=== PATIENT | male | born 1950 | race African-American/Black ===

== ENCOUNTER 2016-08-08 01:24 | Inpatient (IN) ==
[2016-08-08] MEDS ORDERED: ENOXAPARIN 100 MG/ML SYRINGE SUBCUT STA (02:03)
[2016-08-08] MEDS ORDERED: MORPHINE 2 MG/1 ML SYRINGE IV STA (02:03)
[2016-08-08 02:11] LABS: Basophils % 0.6 % (0.0-0.8); Eosinophils # 0.2 10*3/uL (0.0-0.87); Eosinophils % 3.9 % (0.00-10.9); Hemoglobin 12.9 GM/DL (14.0-18.0); Immature Granulocytes % 0.2 %; Immature Granulocytes Absolute 0.01 #; Lymphocytes # 1.7 10*3/uL (1.4-4.0); Lymphocytes % 34.1 % (21.2-54.2); Mean Corpuscular HGB Conc 34.9 GM/DL (32-36); Mean Corpuscular Hemoglobin 30 PG (27-34); Mean Corpuscular Volume 86.9 FL (87-102); Monocytes # 0.6 10*3/uL (0.11-0.8); Monocytes % 11.3 % (1.7-12.7); Neutrophils # 2.4 10*3/uL (1.4-7.4); Neutrophils % 49.9 % (38.7-73.9); Platelet Count 199 T/CUMM (130-400); Red Blood Count 4.26 MC/CUMM (3.8-5.5); White Blood Count 4.9 T/CUMM (4-12)
[2016-08-08] MEDS ORDERED: ENOXAPARIN 120 MG/0.8 ML SYRINGE SUBCUT ONE (02:11)
[2016-08-08] MEDS ORDERED: MORPHINE 2 MG/1 ML SYRINGE ONE (02:11)
[2016-08-08 02:17] LABS: INR 1.2; PT Patient Result 13.1 SECS
--- NOTE | 2016-08-08 02:20 | Emergency Department Note ---
Marilyn Hernandes Hilary, am scribing for, and in the presence of, Stanley Lindo MD 02:09. Guicho Hernandes Robert M, MD, personally performed the services described in this documentation, ascribed by Lakeshia Sanders in my presence, and it is both accurate and complete . Arrival - Arrival Chief Complaint: Shortness of Breath Stated Complaint: sob ED Nursing Triage Note: C/O Shortness of breath when laying down or exertion. Onset one week ago. Pt reports compliance with medications and dialysis. Pt reports that they got him down to his dry weight on Friday with no relief in the shortness of breath. Pt states that he was going to try to make it to dialysis today, but he just couldn't make it. Mode of Arrival: Wheelchair Limitations: No Limitations Source: Patient, RN Notes Reviewed - History of Present Illness HPI Narrative: Pt is a 66 y/o black male presenting to the ED with c/o SOB which onset a week ago. Pt confirms SOB when laying down or exertion and abdominal pain but denies chest pain. Pt reports compliance with medications adn dialysis and gets dialysis every Friday, and Friday. No other complaints or problems stated in the ED. Pt has a PMHx of HTN, [place], NIDDM, Renal failure, and dialysis. Onset (ago): week(s) Allergies/Adverse Reactions: Allergies Allergy/AdvReac Type Severity Reaction Status Date / Time No Known Allergies Allergy Verified 12/23/14 12:10 Home Medications: Home Medications Medication Instructions Recorded Confirmed Type Mineral Oil/Petrolatum,White 1 applic RIGHT EYE BEDTIME PRN #1 12/15/14 Rx [Lacri-Lube Oph Oint] tube Aspirin [Ecotrin] 81 mg PO DAILY 12/19/14 08/08/16 History Labetalol HCl 300 mg PO BID 12/19/14 08/08/16 History Simvastatin 40 mg PO BEDTIME 12/19/14 08/08/16 History glipiZIDE XL [Glucotrol Xl] 5 mg PO DAILY W/BREAKFAST 12/19/14 08/08/16 History HYDROcodone/ACETAMIN 10-325 [[place] 1 tablet PO BID 08/08/16 08/08/16 History 10-325] Zolpidem [Ambien] 5 mg PO BEDTIME 08/08/16 08/08/16 History Review of System - Review of System 12 point system: reviewed and no additional remarkable complaints except as stated - Review of System Constitutional: Absent: fever Respiratory: Present: respiratory distress (SOB) Cardiovascular: Present: dyspnea on exertion. Absent: chest pain Gastrointestinal: Present: abdominal pain Medical,Surgical,& Family Hx - Medical History Cardio: History of: Hypertension, [place] Endocrine: History of: Diabetes Mellitus (NIDDM) Renal: History of: Dialysis (FRIDAY, FRIDAY, FRIDAY), Renal Failure - Surgical History Cardiac Surgeries: Sugical HX of: Femoral-Popliteal Bypass Graft Neurologic Surgeries: Surgical HX of: Neurologic Surgery (bells palsey) - Family History Family History: Reports;: Family Diabetes, Family Heart Disease, Family Hypertension - Social History Smoking Status: Never smoker Frequency of Alcohol Use: None Type of Drug Use: None Exam Vital Signs: Vital Signs Temperature 98.2 F 08/08/16 01:27 Pulse Rate 78 08/08/16 01:27 Respiratory Rate 22 08/08/16 01:27 Blood Pressure 207/105 08/08/16 01:27 O2 Sat by Pulse Oximetry 98 08/08/16 01:27 - General General appearance: alert, in no apparent distress - Head Head exam: Present: atraumatic, normocephalic - Eye Eye exam: Present: normal appearance, PERRL, EOMI - ENT ENT exam: Present: mucous membranes moist, TM's normal bilaterally. Absent: mucous membranes dry - Neck Neck exam: Present: full ROM, trachea midline. Absent: tenderness - Chest Chest inspection: Present: symmetric chest wall rise. Absent: tenderness - Respiratory Respiratory exam: Present: rales (bilaterally), rhonchi (bilaterally) - Cardiovascular Cardiovascular exam: Present: regular rate, normal rhythm, normal heart sounds. Absent: murmur, rubs, gallop - Abdominal Exam Abdominal exam: Present: soft, normal bowel sounds. Absent: distention, tenderness - Extremities Exam Extremities exam: Present: full ROM, other (Upper left extremity graft and right forearm graft). Absent: tenderness - Back Exam Back exam: Present: full ROM. Absent: tenderness - Neurological Exam Neurological exam: Present: alert, oriented X3, CN II-XII intact. Absent: motor sensory deficit - Psychiatric Psychiatric exam: Present: normal affect, normal mood - Skin Skin exam: Present: warm, dry, intact, normal color. Absent: rash Results - Labs CBC & BMP: 08/08/16 01:41 08/08/16 01:41 Lab Results: I have reviewed the patients labs Labs: Lab Results WBC 4.9 T/CUMM (4-12) 08/08/16 01:41 RBC 4.26 MC/CUMM (3.8-5.5) 08/08/16 01:41 Hgb 12.9 GM/DL (14.0-18.0) L 08/08/16 01:41 Hct 37.0 VOL% (42.0-52.0) L 08/08/16 01:41 MCV 86.9 FL (87-102) L 08/08/16 01:41 MCH 30 PG (27-34) 08/08/16 01:41 MCHC 34.9 GM/DL (32-36) 08/08/16 01:41 RDW 15.0 % (9.3-17.3) 08/08/16 01:41 Plt Count 199 T/CUMM (130-400) 08/08/16 01:41 MPV 11.0 FL (9.6-12.0) 08/08/16 01:41 Neut % (Auto) 49.9 % (38.7-73.9) 08/08/16 01:41 Lymph % (Auto) 34.1 % (21.2-54.2) 08/08/16 01:41 [place] % (Auto) 11.3 % (1.7-12.7) 08/08/16 01:41 Eos % (Auto) 3.9 % (0.00-10.9) 08/08/16 01:41 Baso % (Auto) 0.6 % (0.0-0.8) 08/08/16 01:41 Neut # (Auto) 2.4 10*3/uL (1.4-7.4) 08/08/16 01:41 Lymph # (Auto) 1.7 10*3/uL (1.4-4.0) 08/08/16 01:41 [place] # (Auto) 0.6 10*3/uL (0.11-0.8) 08/08/16 01:41 Eos # (Auto) 0.2 10*3/uL (0.0-0.87) 08/08/16 01:41 Baso # (Auto) 0.0 10*3/uL (0.0-0.2) 08/08/16 01:41 Immature Gran % 0.2 % 08/08/16 01:41 Nucleated RBC % 0.0 /100WBC 08/08/16 01:41 Immature Gran # 0.01 # 08/08/16 01:41 Nucleated RBCs # 0.00 10*3/uL 08/08/16 01:41 INR 1.2 08/08/16 01:41 PT Patient/Control Mix 13.1 SECS 08/08/16 01:41 Sodium 139 MMOL/L (136-145) 08/08/16 01:41 Potassium 3.2 MMOL/L (3.5-5.1) L 08/08/16 01:41 Chloride 95 MMOL/L (98-107) L 08/08/16 01:41 Carbon Dioxide 32 MMOL/L (21-32) 08/08/16 01:41 Anion Gap 15.2 MMOL/L (5.0-15.0) H 08/08/16 01:41 BUN 34 MG/DL (7-18) H 08/08/16 01:41 Creatinine 11.20 MG/DL (0.70-1.30) H 08/08/16 01:41 GFR Calculation 7 ML/MIN 08/08/16 01:41 BUN/Creatinine Ratio 3.00 RATIO (6.00-20.00) L 08/08/16 01:41 Glucose 101 MG/DL (74-106) 08/08/16 01:41 Calculated Osmolality 284.5 MOS/KG (273-304) 08/08/16 01:41 Calcium 8.3 MG/DL (8.5-10.1) L 08/08/16 01:41 Magnesium 2.0 MG/DL (1.8-2.4) 08/08/16 01:41 Total Bilirubin 0.80 MG/DL (0.2-1.0) 08/08/16 01:41 AST 9 U/L (0-37) 08/08/16 01:41 ALT 9 U/L (16-61) L 08/08/16 01:41 Alkaline Phosphatase 42 U/L (45-117) L 08/08/16 01:41 Troponin I 0.096 NG/ML (0.00-0.045) H 08/08/16 01:41 B-Natriuretic Peptide 1255 PG/ML (2-100) H 08/08/16 01:41 Total Protein 7.2 G/DL (6.4-8.3) 08/08/16 01:41 Albumin 4.0 G/DL (3.4-5.0) 08/08/16 01:41 Globulin 3.2 G/DL (2.3-3.5) 08/08/16 01:41 Albumin/Globulin Ratio 1.2 RATIO (1.1-2.2) 08/08/16 01:41 - Diagnostic Findings Procedure: Chest x-ray: report reviewed by me (Status post CABG. Stable cardiomegaly. Right basilar atelectasis/pleural effusion. Mild CHF not excluded.) Disposition Clinical Impression: Congestive heart failure, Hypertension, Late effects of CVA (cerebrovascular accident), Left leg weakness, ESRD on hemodialysis, Diabetes mellitus Case discussed with: patient, patient's family Disposition: Still a Patient Condition: Stable Time of Disposition: 03:00
[2016-08-08 02:34] LABS: Bilirubin,Total 0.8 MG/DL (0.2-1.0); Calcium 8.3 MG/DL (8.5-10.1); Osmolality,Calculated 284.5 MOS/KG (273-304); Potassium 3.2 MMOL/L (3.5-5.1); Total Protein 7.2 G/DL (6.4-8.3)
[2016-08-08 02:40] LABS: Troponin I Only 0.096 NG/ML (0.00-0.045)
[2016-08-08] MEDS ORDERED: ACETAMINOPHEN 325 MG TABLET PO PRN (03:35)
[2016-08-08] MEDS ORDERED: MORPHINE 2 MG/1 ML SYRINGE IV PRN (03:35)
[2016-08-08] MEDS ORDERED: ZALEPLON 5 MG CAPSULE PO PRN (03:35)
[2016-08-08] MEDS ORDERED: DEXTROSE 50% 25 GM/50 ML VIAL IV PRN (03:40)
[2016-08-08] MEDS ORDERED: GLUCAGON 1 MG VIAL IM PRN (03:40)
[2016-08-08] MEDS ORDERED: MINERAL OIL/PETROLATUM OPH OINT 3.5 GM TUBE RIGHT EYE PRN (03:42)
--- NOTE | 2016-08-08 03:59 | Hospitalist History & Physical ---
Assessment and Plan (1) Congestive heart failure Status: Acute Assessment and plan: 66 year old male. Patient was markedly short of breath on admission. After morphine and O2 per NC, he was resting comfortably. We will forego diuresis as the patient no longer makes urine. We have consulted cardiology. Current Visit: Yes (2) ESRD on hemodialysis Status: Chronic Assessment and plan: Patient dialyzes on Friday, , Friday. We have consulted nephrology and will plan to dialyze today as scheduled. Current Visit: Yes (3) Diabetes mellitus Status: Acute Assessment and plan: Serum glucose 101. Appears to be well controlled on home meds. Continue POC. Current Visit: Yes Qualifiers: Diabetes mellitus type: type 2 Diabetes mellitus complication detail: with chronic kidney disease Qualified Code(s): E11.22 - Type 2 diabetes mellitus with diabetic chronic kidney disease (4) Hypertension Status: Acute Assessment and plan: Patient states that his BP is typically well controlled with Lobetalol. Will continue home meds and adjust hospital medications accordingly as needed. Current Visit: Yes Qualifiers: Hypertension type: essential hypertension Qualified Code(s): I10 - Essential (primary) hypertension History of Present Illness Chief complaint: SOB History of present illness: Mr. Denney is a 66 year old male with a past medical history significant for hypertension, congestive heart failure, diabetes mellitus, CABG in 2009, and ESRD on hemodialysis who presents to the ED today with complaints of progressive shortness of breath x 1 week. The patient has been on hemodialysis for nearly 18 years now and routinely sees Dr. Rian Vela and [facility] nephrology for his renal and primary medical management. He reports that he has been feeling progressively short of breath for approximately one week now. He dialyzes on Friday, and Friday. He tells me that on Friday, nearly 4L were pulled off of him in an effort to improve his breathing. Unfortunately, that provided little relief. On exam, the patient is resting comfortably on 2L O2 per NC in bed and able to have normal conversation without becoming short of breath. He only complains of the SOB and some generalized abdominal pain. He denies headache, chest pain, pain on inspiration, syncope, lower extremity edema. Preliminary lab work reveals hemoglobin 12.9 hematocrit 37.0 potassium 3.2 chloride 95 CO2 32 BUN 34 creatinine 11.2 calcium 8.3 troponin 0.096 BNP 1255. The patient will be admitted to the hospital medicine service for further evaluation and treatment. We will consult nephrology for hemodialysis. He is a full code. Home Medications Medication Instructions Recorded Confirmed Type Mineral Oil/Petrolatum,White 1 applic RIGHT EYE BEDTIME PRN #1 12/15/14 Rx [Lacri-Lube Oph Oint] tube Aspirin [Ecotrin] 81 mg PO DAILY 12/19/14 08/08/16 History Labetalol HCl 300 mg PO BID 12/19/14 08/08/16 History Simvastatin 40 mg PO BEDTIME 12/19/14 08/08/16 History glipiZIDE XL [Glucotrol Xl] 5 mg PO DAILY W/BREAKFAST 12/19/14 08/08/16 History HYDROcodone/ACETAMIN 10-325 [[place] 1 tablet PO BID 08/08/16 08/08/16 History 10-325] Zolpidem [Ambien] 5 mg PO BEDTIME 08/08/16 08/08/16 History Allergies Allergy/AdvReac Type Severity Reaction Status Date / Time No Known Allergies Allergy Verified 12/23/14 12:10 Medical,Surgical,& Family Hx - Medical History Cardio: History of: Hypertension, [place] Endocrine: History of: Diabetes Mellitus (NIDDM) Renal: History of: Dialysis (FRIDAY, FRIDAY, FRIDAY), Renal Failure - Surgical History Cardiac Surgeries: Sugical HX of: Femoral-Popliteal Bypass Graft Neurologic Surgeries: Surgical HX of: Neurologic Surgery (bells palsey) - Family History Family History: Reports;: Family Diabetes, Family Heart Disease, Family Hypertension - Social History Smoking Status: Never smoker Frequency of Alcohol Use: None Type of Drug Use: None Marital Status: Lives With:: Spouse Functional capacity: independent ambulation - Constitutional Constitutional: Absent: frequent falls, headache(s), weakness - EENT Eyes: Absent: blurry vision, loss of vision Ears: Absent: decreased hearing - Cardiovascular Cardiovascular: Present: dyspnea on exertion. Absent: chest pain at rest, chest pain with activity - Respiratory Respiratory: Present: dyspnea, dyspnea on exertion. Absent: cough, hemoptysis - Gastrointestinal Gastrointestinal: Absent: abdominal pain, constipation, diarrhea - Genitourinary Genitourinary: Absent: difficulty urinating, dysuria - Musculoskeletal Musculoskeletal: Absent: back pain - Neurological Neurological: Absent: abnormal gait, abnormal speech - Psychiatric Psychiatric: Absent: anxiety, confusion - Endocrine Endocrine: Present: cold intolerance, heat intolerance - Hematologic/Lymphatic Hematologic/Lymphatic: Present: easy bleeding. Absent: easy bruising Exam - Constitutional Vitals: Period Temp Pulse Resp BP Sys/Carreon Pulse Ox Last 24 Hr 98.2 F-98.2 F 78-78 18-22 207-207/105-105 98 Exam: General appearance: overweight, no acute distress - Head Head exam: Present: normocephalic, atraumatic - Eye Eye exam: Present: EOMI. Absent: conjunctival injection, nystagmus Pupils: Present: FERCHO, normal accommodation - ENT ENT exam: Present: normal exam, normal external ear exam - Neck Neck exam: Present: normal inspection. Absent: lymphadenopathy, tenderness, thyromegaly - Respiratory Respiratory exam: Present: clear to auscultation bilaterally. Absent: rales, rhonchi, wheezes - Cardiovascular Cardiovascular exam: Present: regular rate and rhythm. Absent: carotid bruit, gallop, rubs - GI/Abdominal GI/Abdominal exam: Present: normal bowel sounds, soft, nontender Absent: ascites, distended, mass - Extremities Exam Extremities exam: Present: normal inspection, normal capillary refill. Absent: edema - Back Exam Back exam: Absent: CVA tenderness (L), CVA tenderness (R) - Neurological Exam Neurological exam: Present: alert, oriented X3 - Psychiatric Psychiatric exam: Present: normal affect, normal mood - Skin Skin exam: Present: normal color, warm, dry Results - Labs CBC & BMP: 08/08/16 01:41 08/08/16 01:41 Lab Results: I have reviewed the past 24 hour labs
[2016-08-08] MEDS ORDERED: hydrALAZINE 20 MG/1 ML VIAL IV PRN (05:05)
[2016-08-08 06:37] LABS: Basophils % 0.5 % (0.0-0.8); Eosinophils # 0.2 10*3/uL (0.0-0.87); Hematocrit 35.6 VOL% (42.0-52.0); Hemoglobin 11.8 GM/DL (14.0-18.0); Immature Granulocytes % 0.2 %; Immature Granulocytes Absolute 0.01 #; Lymphocytes # 1.4 10*3/uL (1.4-4.0); Lymphocytes % 32.6 % (21.2-54.2); Mean Corpuscular HGB Conc 33.1 GM/DL (32-36); Mean Corpuscular Hemoglobin 29 PG (27-34); Mean Corpuscular Volume 88.1 FL (87-102); Mean Platelet Volume 10.2 FL (9.6-12.0); Monocytes # 0.5 10*3/uL (0.11-0.8); Monocytes % 10.7 % (1.7-12.7); Neutrophils # 2.2 10*3/uL (1.4-7.4); Platelet Count 189 T/CUMM (130-400); Red Blood Count 4.04 MC/CUMM (3.8-5.5); Red Cell Distribution Width 14.9 % (9.3-17.3); White Blood Count 4.3 T/CUMM (4-12)
--- NOTE | 2016-08-08 06:53 | XRay Report ---
Exam: XR chest 1V portable Date: 08/08/2016 2:03 AM Indication: Shortness of breath Comparison: 12/19/2014 Technical: AP portable Findings: Cardiomegaly present with previous sternotomy. Minimal atelectatic change in the right base. Mild pleural thickening and/or tiny effusion present along the right chest. No pneumothorax. Impression: 1. Cardiomegaly with the previous sternotomy 2. Low volume right effusion and atelectatic change with basal atelectasis in the left base also noted. PROCEDURE INTERPRETED AT [facility] DEPARTMENT OF RADIOLOGY Final Report Signed by: Dr. Dustin Myers
[2016-08-08 07:12] LABS: Calcium 8.3 MG/DL (8.5-10.1); Osmolality,Calculated 286.4 MOS/KG (273-304); Potassium 3.1 MMOL/L (3.5-5.1)
[2016-08-08] MEDS: INSULIN LISPRO 100 UNIT/ML SUBCUT SCH ×4 (08:06→21:36)
--- NOTE | 2016-08-08 08:54 | Nephrology Consult Note ---
History of Present Illness Chief complaint: SOB and ESRD History of present illness: Mr. Denney is a 66 year old male who presents with shortness of breath. He dialyzes on Friday and the [facility]. He has been complaining of shortness of breath which became worse last night. Chest x- ray demonstrates changes compatible with volume overload. His chest is very clear to auscultation but he does have 2+ peripheral edema below the knees. He says he has been eating well. Past medical history significant for coronary artery bypass grafting 7 years ago. On physical exam as mentioned the chest is clear he does have edema he is in no distress he is using supplemental oxygen with an O2 saturation of 97% and a heart rate of 80. Impression volume overload #2 end-stage renal disease Plan will dialyze today and remove as much fluid as tolerated and see if that helps his shortness of breath. Nothing in his history suggests angina. His hematocrit is 35 Home Medications Medication Instructions Recorded Confirmed Type Aspirin [Ecotrin] 81 mg PO DAILY 12/19/14 08/08/16 History Labetalol HCl 300 mg PO BID 12/19/14 08/08/16 History Simvastatin 40 mg PO BEDTIME 12/19/14 08/08/16 History glipiZIDE XL [Glucotrol Xl] 5 mg PO DAILY W/BREAKFAST 12/19/14 08/08/16 History Clopidogrel [Plavix] 75 mg PO DAILY 08/08/16 08/08/16 History HYDROcodone/ACETAMIN 10-325 [[place] 1 tablet PO BID 08/08/16 08/08/16 History 10-325] Zolpidem [Ambien] 5 mg PO BEDTIME 08/08/16 08/08/16 History Allergies Allergy/AdvReac Type Severity Reaction Status Date / Time No Known Allergies Allergy Verified 12/23/14 12:10 Medical,Surgical,& Family Hx - Medical History Cardio: History of: Hypertension, [place] Endocrine: History of: Diabetes Mellitus (NIDDM) Renal: History of: Dialysis (FRIDAY, FRIDAY, FRIDAY), Renal Failure Musculoskeletal: History of: Back/Neck Problems ("back problems") - Surgical History Cardiac Surgeries: Sugical HX of: Femoral-Popliteal Bypass Graft Neurologic Surgeries: Surgical HX of: Neurologic Surgery (bells palsey) - Family History Family History: Reports;: Family Diabetes, Family Heart Disease, Family Hypertension - Social History Smoking Status: Never smoker Frequency of Alcohol Use: None Type of Drug Use: None Review of Systems 12 point system: reviewed and no additional remarkable complaints except as stated Exam - Vital Signs Vital signs: Period Temp Pulse Resp BP Sys/Carreon Pulse Ox Last 24 Hr 97.8 F 71-72 18-20 183-186/96-116 95-98 - General Appearance General appearance: well-developed, well-nourished, appears started age EENT: ATNC Neck: no JVD, no thyromegaly, no carotid bruit, supple Respiratory: no kyphosis, no scoliosis Cardiology: no murmurs, no rub, no gallops, no edema, regular rate, regular rhythm, normal S1, normal S2 Gastrointestinal: normoactive bowel sounds Integumentary: no rash, warm and dry Neurologic: no focal deficit, no asterixis, alert and oriented x3, reflexes 2+ and symmetric, gait normal, strength 5/5 Musculoskeletal: no deformities, no erythema, no cyanosis, no clubbing Psychiatric: mood/affect appropriate, cooperative Results - Labs CBC & BMP: 08/08/16 06:22 08/08/16 06:22 Assessment and Plan - Time spent with patient Time spent with patient: Greater than 30 minutes (1) Dyspnea Status: Acute Assessment and plan: Volume overload, will dialyze Current Visit: Yes (2) ESRD on hemodialysis Status: Chronic Current Visit: Yes (3) History of coronary artery bypass graft Status: Chronic Current Visit: Yes Specialty Discharge - Follow Up or Referrals - Speciality Discharge Instructions Nephrology Instructions: Dialyzed today and remove volume as tolerated.
[2016-08-08] MEDS ORDERED: POTASSIUM CHLORIDE 20 MEQ TABLET PO ONE (09:02)
--- NOTE | 2016-08-08 09:06 | EKG Report ---
Stationary ECG Study [facility] ER Test Date: 08/08/2016 1:32:13 AM Pat Name: ABIGAIL MATOS Department: Room: 234 Gender: M Residential Program Director: : 1950 Requested by: Carolann Jules Order Number: [id number] Reading MD: GI TALLEY Intervals [place] Rate: 72 P: 999 NC: 0 QRS: 38 QRSD: 90 T: 125 QT: 335 QTc: 360 Interpretive Statements ATRIAL FIBRILLATION WITH ABERRANT CONDUCTION OR VENTRICULAR PREMATURE COMPLEX NONSPECIFIC T-WAVE ABNORMALITY Electronically Signed On 08-08-16 11:28:08 CDT by GI TALLEY [email or web address]
[2016-08-08] MEDS: ASPIRIN EC 81 MG TABLET PO SCH (09:45)
[2016-08-08] MEDS: LABETALOL 100 MG TABLET PO SCH ×2 (09:46→21:35)
[2016-08-08] MEDS: PANTOPRAZOLE 40 MG TABLET PO SCH (09:46)
--- NOTE | 2016-08-08 09:53 | EKG Report ---
Stationary ECG Study [facility] Test Date: 08/08/2016 9:52:56 AM Pat Name: ABIGAIL MATOS Department: Room: 234 Gender: M Claims Representative: : 1950 Requested by: Stanley Lindo Order Number: [id number] Reading MD: GI TALLEY Intervals [place] Rate: 74 P: 21 WV: 184 QRS: 71 QRSD: 94 T: 137 QT: 395 QTc: 422 Interpretive Statements SINUS RHYTHM WITH OCCASIONAL VENTRICULAR PREMATURE COMPLEXES WITH OCCASIONAL SUPRAVENTRICULAR PREMATURE COMPLEXES NONSPECIFIC T-WAVE ABNORMALITY Electronically Signed On 08-08-16 11:45:21 CDT by GI TALLEY [email or web address]
[2016-08-08 10:19] LABS: Troponin I Only 0.094 NG/ML (0.00-0.045)
[2016-08-08 10:21] LABS: Calcium 8.1 MG/DL (8.5-10.1); Osmolality,Calculated 286.5 MOS/KG (273-304); Potassium 3.1 MMOL/L (3.5-5.1)
--- NOTE | 2016-08-08 14:43 | Dialysis Note ---
Dialysis Note - Dialysis Note Mr. Gonzales seen during his hemodialysis. We are removing 4 kg of volume today and will repeat a chest x-ray in the morning. He is tolerating this fluid removal well with no drop in blood pressure and no problem thus far.
[2016-08-08] MEDS: hydrALAZINE 25 MG TABLET PO SCH ×2 (16:58→21:36)
--- NOTE | 2016-08-08 17:23 | ECHO Report ---
Sheldon Denney Exam Date: 08/08/2016 09:13 Referring Physician: Technologist: Rebekah Barber Age: 66 Ht (in): 69 Wt (lb): 260 Gender: M Exam Location: [facility] Echo Indications: Altered mental status, CHF, Lt. Leg weakness, Rt. sided bells palsy, ESRD, diabetes, HTN, CVA BP: 183 / 125 HR: 71 Rhythm: Sinus Technical Quality: Fair IMPRESSIONS Distal anteroapical hypokinesis. EF 45 %. Grade II/IV diastolic dysfunction, moderately elevated filling pressures. Mild concentric left ventricular hypertrophy. Mildly increased right ventricular size. The right atrium is mildly enlarged. The left atrium is mildly enlarged. Mildly thickened mitral valve. Mild mitral valve regurgitation. Aortic valve sclerosis. Trace aortic valve regurgitation. Toxf-im-ltgnicyb tricuspid valve regurgitation. PAP40 mmHg. Pulmonic valve not well visualized. No pericardial effusion. Normal size aortic root and proximal ascending aorta. No LV or LA clot seen. MEASUREMENTS (Male / Female) Normal Values 2D ECHO LV Diastolic Diameter PLAX 5.7 cm 4.2 - 5.9 / 3.9 - 5.3 cm LV Systolic Diameter PLAX 4.0 cm LV Fractional Shortening PLAX 29.9 % IVS Diastolic Thickness 1.6 cm 0.6 - 1.0 / 0.6 - 0.9 cm LVPW Diastolic Thickness 1.4 cm 0.6 - 1.0 / 0.6 - 0.9 cm Aortic Root Diameter 2.3 cm LA Systolic Diameter LX 4.3 cm 3.0 - 4.0 / 2.7 - 3.8 cm DOPPLER TR Peak Velocity 196.0 cm/s TR Peak Gradient 15.4 mmHg FINDINGS Left Ventricle Distal anteroapical hypokinesis.EF 45 %. Grade II/IV diastolic dysfunction, moderately elevated filling pressures. Mild concentric left ventricular hypertrophy. Right Ventricle Mildly increased right ventricular size. Right Atrium The right atrium is mildly enlarged. Left Atrium The left atrium is mildly enlarged. Mitral Valve Mildly thickened mitral valve. Mild mitral valve regurgitation. Aortic Valve Aortic valve sclerosis. Trace aortic valve regurgitation. Tricuspid Valve Morphologically normal tricuspid valve. Lsfy-hi-zfpnnceo tricuspid valve regurgitation. PAP40 mmHg. Pulmonic Valve Pulmonic valve not well visualized. Pericardium No pericardial effusion. Aorta Normal size aortic root and proximal ascending aorta. Anuj Plavac (Electronically Signed) Final Date: 08 Aug 2016 17:22
--- NOTE | 2016-08-08 17:36 | Cardiology Consult Note ---
Azar Hernandes April RN, am scribing for, and in the presence of, Eliecer Jones MD 17:35. Assessment and Plan - Time spent with patient Time spent with patient: Greater than 30 minutes (Due to assessment, planning, documentation, medication review) (1) SOB (shortness of breath) Status: Acute Current Visit: Yes (2) CAD (coronary artery disease) Status: Chronic Current Visit: Yes Qualifiers: Coronary Disease-Associated Artery/Lesion type: bypass graft [place] vs. transplanted heart: [place] heart Associated angina: without angina Qualified Code(s): I25.810 - Atherosclerosis of coronary artery bypass graft(s) without angina pectoris (3) History of coronary artery bypass graft Status: Chronic Current Visit: Yes (4) ESRD on hemodialysis Status: Chronic Current Visit: Yes (5) Atrial fibrillation Status: Acute Current Visit: Yes History of Present Illness - Data of Consult Patient: known to practice within the last 3 years Consult date: 08/08/16 Requesting Physician: Hemant Fischer - Consult Narrative Reason for consult: Shortness of breath History of present illness: Youtuber: Dr. Jones Mr. Denney is a 66 year old male who is routinely followed by Dr. Jones with a history of CAD, NIDDM, end-stage renal disease on dialysis, hypertension, dyslipidemia, and Jimenez's palsy. He underwent CABG on 07/31/[address] Ashley with a HARDY to LAD, SVG to circumflex, and SVG to PDA. Stress test done at Dr. Jones's office in June 2014 that showed abnormal myocardial perfusion suggesting inferoapical scar and abnormal segmental wall motion suggesting diffuse hypokinesis. Echo done in August 2015 with ejection fraction of 45%. Other surgical history includes thyroid surgery and surgery to left arm for dialysis access. Family history is positive for father with diabetes, heart disease, and hypertension. He does not smoke, reportedly quit smoking 30 years ago. He lives at home with his and uses a cane to assist with ambulation. Mr. Denney reports he was in his usual state of health until about a week ago. He tells me he normally has some dyspnea on exertion, but this got worse about a week ago. He also began to get short of breath at rest and reports orthopnea. Over the last week this has progressively gotten worse. He dialyzes on Tuesdays and Saturdays and have dialysis on Friday would help, but he reports that it did not. He presented to the emergency department earlier this morning for further evaluation. He reports his breathing improved after he received morphine and oxygen via nasal cannula in the emergency department. Currently Mr. Denney is seen sitting up on side of bed eating breakfast in no acute distress. He reports he is still slightly short of breath, but much improved from on admission. He is able to carry on a conversation. Oxygen in use via nasal cannula at 2 L. He denies having had any swelling with this shortness of breath, but I do note that he has trace edema to his bilateral lower extremities. Chest x-ray shows cardiomegaly and atelectasis. EKG done in emergency department shows atrial fibrillation with heart rate of 72. He tells me he has had no knowledge of any rhythm problems. Rhythm strip done later this morning appears to be sinus rhythm. He is currently not on a monitor , but he does sound irregular on auscultation. We will recheck an EKG this morning. Blood pressures been elevated since admission, most current is 183/ 96. He takes labetalol 300 mg twice daily at home, this has been started. We will add hydralazine 25 mg p.o. 3 times daily. O2 sat 95% on 2 L of O2. His potassium is low at 3.1, magnesium is 2.0. We will give K-Dur 20 meq 1 dose now and recheck labs after dialysis today. BUN and creatinine 36 and 11.90, he is scheduled to dialyze today. Troponin 0.096, we will cycle cardiac biomarkers. BNP is 1205. He does not make any urine so diuretics have not been given. Echo is pending. Patient admitted with CHF exacerbation. He has known coronary disease and repeat echo is pendin We will continue his current medications. CC: Reddy Leger MD - Home Medications and Allergies Home Medications: Home Medications Medication Instructions Recorded Confirmed Type Aspirin [Ecotrin] 81 mg PO DAILY 12/19/14 08/08/16 History Labetalol HCl 300 mg PO BID 12/19/14 08/08/16 History Simvastatin 40 mg PO BEDTIME 12/19/14 08/08/16 History glipiZIDE XL [Glucotrol Xl] 5 mg PO DAILY W/BREAKFAST 12/19/14 08/08/16 History Clopidogrel [Plavix] 75 mg PO DAILY 08/08/16 08/08/16 History HYDROcodone/ACETAMIN 10-325 [[place] 1 tablet PO BID 08/08/16 08/08/16 History 10-325] Zolpidem [Ambien] 5 mg PO BEDTIME 08/08/16 08/08/16 History Allergies/Adverse Reactions: Allergies Allergy/AdvReac Type Severity Reaction Status Date / Time No Known Allergies Allergy Verified 12/23/14 12:10 - Constitutional Constitutional: Present: as per HPI - EENT Eyes: Present: requires corrective lense. Absent: blurry vision Ears: Absent: decreased hearing, ear pain, tinnitus Nose, mouth and throat: Absent: dysphagia, epistaxis, headache(s), hoarseness, neck pain, sore throat - Cardiovascular Cardiovascular: Present: dyspnea, dyspnea on exertion, edema, orthopnea. Absent : chest pain at rest, chest pain with activity, diaphoresis, radiating jaw, neck or arm pain, lightheadedness, palpitations - Respiratory Respiratory: Present: cough (Dry), dyspnea, dyspnea on exertion. Absent: hemoptysis, wheezing - Gastrointestinal Gastrointestinal: Present: constipation. Absent: abdominal pain, diarrhea, hematemesis, hematochezia, melena, nausea, vomiting - Genitourinary Genitourinary: Present: other (End-stage renal disease on dialysis) - Musculoskeletal Musculoskeletal: Present: back pain. Absent: limited range of motion, muscle weakness - Neurological Neurological: Present: abnormal gait. Absent: abnormal speech, confusion, dizziness, frequent falls, headache(s), syncope - Psychiatric Psychiatric: Absent: anxiety, depression - Endocrine Endocrine: Present: fatigue - Hematologic/Lymphatic Hematologic/Lymphatic: Absent: easy bleeding, easy bruising Medical,Surgical,& Family Hx - Medical History Cardio: History of: CAD, Hypertension Endocrine: History of: Diabetes Mellitus (NIDDM) Renal: History of: Dialysis (FRIDAY, FRIDAY, FRIDAY), Renal Failure Musculoskeletal: History of: Back/Neck Problems ("back problems") - Surgical History Cardiac Surgeries: Sugical HX of: Cardiac Surgery (CABG 2009) Additional Surgical History: Dialysis access - Family History Family History: Reports;: Family Diabetes (Father), Family Heart Disease (Father ), Family Hypertension (Father) - Social History Smoking Status: Former smoker (Quit 30 years ago) Frequency of Alcohol Use: None Type of Drug Use: None Marital Status: Lives With:: Spouse Functional capacity: uses cane/walker Physical Examination Vital Signs Temp Pulse Resp BP Pulse Ox 98.2 F 78 22 207/105 98 08/08/16 01:27 08/08/16 01:27 08/08/16 01:27 08/08/16 01:27 08/08/16 01:27 General: Present: Appears Well, No Apparent Distress HEENT: Present: PERRL, Mucus Membranes Moist Neck: Present: Supple Neck, Midline Trachea, No Bruit Cardiac: Present: Irregularly Regular, No Murmur Lungs: Present: Normal Breath Sounds, Oxygen (Via nasal cannula), No Wheeze, Rales, Rhonchi Neuro: Absent: Resting Tremor, Essential Tremor Abdomen: Present: Soft, Active Bowel Sounds, Non-Tender. Absent: Distended Skin: Present: Clear Musculoskeletal: Present: Normal Range of Motion Extremities: Present: Normal Upper Extr. Pulses, Normal Lower Extr. Pulses, Edema (Trace edema to bilateral lower extremities), Other (Dialysis access left arm) Result/EKG - Labs CBC & BMP: 08/08/16 06:22 08/08/16 09:23 Lab Results: I have reviewed the past 24 hour labs Labs: Laboratory Results - last 24 hr 08/08/16 08/08/16 08/08/16 06:22 06:22 06:22 WBC 4.3 RBC 4.04 Hgb 11.8 L Hct 35.6 L MCV 88.1 MCH 29 MCHC 33.1 RDW 14.9 Plt Count 189 MPV 10.2 Neut % (Auto) 52.0 Lymph % (Auto) 32.6 [place] % (Auto) 10.7 Eos % (Auto) 4.0 Baso % (Auto) 0.5 Neut # (Auto) 2.2 Lymph # (Auto) 1.4 [place] # (Auto) 0.5 Eos # (Auto) 0.2 Baso # (Auto) 0.0 Immature Gran % 0.2 Nucleated RBC % 0.0 Immature Gran # 0.01 Nucleated RBCs # 0.00 Sodium 140 Potassium 3.1 L Chloride 96 L Carbon Dioxide 31 Anion Gap 16.1 H BUN 36 H Creatinine 11.90 H GFR Calculation 6 BUN/Creatinine Ratio 3.00 L Glucose 90 POC Glucose Calculated Osmolality 286.4 Calcium 8.3 L Magnesium 2.0 B-Natriuretic Peptide 1205 H 08/08/16 07:17 WBC RBC Hgb Hct MCV MCH MCHC RDW Plt Count MPV Neut % (Auto) Lymph % (Auto) [place] % (Auto) Eos % (Auto) Baso % (Auto) Neut # (Auto) Lymph # (Auto) [place] # (Auto) Eos # (Auto) Baso # (Auto) Immature Gran % Nucleated RBC % Immature Gran # Nucleated RBCs # Sodium Potassium Chloride Carbon Dioxide Anion Gap BUN Creatinine GFR Calculation BUN/Creatinine Ratio Glucose POC Glucose 80 Calculated Osmolality Calcium Magnesium B-Natriuretic Peptide - Diagnostic Findings Procedure: Chest x-ray: report reviewed by me - EKG EKG results: interpreted by me EKG shows: atrial fibrillation Robert Hernandes Wesley, MD, personally performed the services described in this documentation, ascribed by Amanda Askew RN in my presence, and it is both accurate and complete [id number] .
[2016-08-08] MEDS ORDERED: ZOLPIDEM 5 MG TABLET PO SCH (21:00)
[2016-08-08] MEDS ORDERED: SIMVASTATIN 40 MG TABLET PO SCH (21:00)
[2016-08-09 04:49] LABS: Basophils % 0.7 % (0.0-0.8); Eosinophils # 0.2 10*3/uL (0.0-0.87); Eosinophils % 3.9 % (0.00-10.9); Hematocrit 33.4 VOL% (42.0-52.0); Hemoglobin 11.2 GM/DL (14.0-18.0); Immature Granulocytes % 0.2 %; Immature Granulocytes Absolute 0.01 #; Lymphocytes # 1.2 10*3/uL (1.4-4.0); Lymphocytes % 29.5 % (21.2-54.2); Mean Corpuscular HGB Conc 33.5 GM/DL (32-36); Mean Corpuscular Hemoglobin 29 PG (27-34); Mean Platelet Volume 11.1 FL (9.6-12.0); Monocytes # 0.5 10*3/uL (0.11-0.8); Monocytes % 12.9 % (1.7-12.7); Neutrophils # 2.2 10*3/uL (1.4-7.4); Neutrophils % 52.8 % (38.7-73.9); Platelet Count 196 T/CUMM (130-400); Red Blood Count 3.84 MC/CUMM (3.8-5.5); Red Cell Distribution Width 14.9 % (9.3-17.3); White Blood Count 4.1 T/CUMM (4-12)
[2016-08-09 05:33] LABS: Osmolality,Calculated 279.7 MOS/KG (273-304); Potassium 3.3 MMOL/L (3.5-5.1)
--- NOTE | 2016-08-09 07:10 | XRay Report ---
XR chest 2V Date: 08/09/2016 4:00 AM History: Shortness of breath Comparison: 08/08/2016 Technique: PA and lateral chest Findings: The heart is smaller in size with prior median sternotomy. Reduced parenchymal findings with smaller pleural effusions. Stable mediastinum and osseous structures. Impression: Improved pulmonary edema with residual atelectasis/infiltration especially in the right mid to lower lung zone. Smaller pleural effusions. Prior median sternotomy. PROCEDURE INTERPRETED AT [facility] DEPARTMENT OF RADIOLOGY Final Report Signed by: Dr. Dorinda Hutchinson
--- NOTE | 2016-08-09 07:52 | Physician Query Form ---
CLICK EDIT DOCUMENT TO SELECT QUERY ANSWER --> OK --> SIGN Fadumo Lindo RN, CCDS Certified Clinical Clerical Clerk W) [phone] (f) [phone] [email or web address]: Make your selection(s) from the choices in EACH section by typing an "x" and enter comments in the comment section. Please use your independent medical judgment in providing your response. This request does not imply that any particular answer is desired or expected. CLINICAL INDICATORS: (Providers should not edit this section) The medical record indicates that the patient was admitted with congestive heart failure, BNP 1255#, "Echo done in August 2015 with ejection fraction of 45% "; the patient was admitted and had dialysis done. Please provide further specificity regarding CHF. ACUITY: ( ) Acute ( ) Chronic ( x) Acute on Chronic ( ) Clinicallly unable to determine TYPE: ( x) Systolic (HFrEF - heart failure with reduced systolic function/EF) ( ) Diastolic (HFpEF - heart failure with preserved systolic function/EF) ( ) Combined Systolic/Diastolic ( ) Other, please specify: ( ) Clinically unable to determine ( ) The patient does NOT have CHF COMMENTS: PLEASE ALSO DOCUMENT RESPONSE IN PROGRESS NOTES AND/OR DISCHARGE SUMMARY Use of terms such as suspected, likely, or probable (associated with a specific diagnosis that is being evaluated, monitored, or treated as if it exists) are acceptable and can be restated in the discharge summary if not ruled out. MTDD
[2016-08-09] MEDS: INSULIN LISPRO 100 UNIT/ML SUBCUT SCH ×2 (08:24→12:16)
[2016-08-09] MEDS: ASPIRIN EC 81 MG TABLET PO SCH (08:26)
[2016-08-09] MEDS: LABETALOL 100 MG TABLET PO SCH (08:26)
[2016-08-09] MEDS: hydrALAZINE 25 MG TABLET PO SCH (08:26)
[2016-08-09] MEDS: PANTOPRAZOLE 40 MG TABLET PO SCH (08:26)
--- NOTE | 2016-08-09 09:05 | Nephrology Progress Note ---
Nephrology - PN: Subj Interval history: Mr. Denney is seen in follow-up of his end-stage renal disease and presentation with shortness of breath. He dialyzed yesterday and fluid was removed. He says he is breathing better but is still short of breath with exertion and did have some orthopnea last night. Chest x-ray this morning demonstrates improved pulmonary edema but still evidence of excess volume is present. We are going to ultrafilter him today for at least 3 kg, more if possible. Following that I think he could be discharged if he is breathing better and resume his outpatient dialysis. If the fluid removal remedies his shortness of breath then we will need to modify his dry weight at the dialysis clinic. Exam (PN)-Nephrology - Vital Signs Vital signs: Period Temp Pulse Resp BP Sys/Carreon Pulse Ox Last 24 Hr 97.3 F-98.1 F 61-77 20-24 119-196/65-97 96-98 - Lab 08/09/16 03:57 08/09/16 03:57 Most recent lab results Calcium 8.0 MG/DL (8.5-10.1) L 08/09/16 03:57 Magnesium 2.0 MG/DL (1.8-2.4) 08/09/16 03:57 Assessment and Plan (1) Dyspnea Status: Acute Assessment and plan: Volume overload, will dialyze Current Visit: Yes (2) ESRD on hemodialysis Status: Chronic Current Visit: Yes (3) History of coronary artery bypass graft Status: Chronic Current Visit: Yes
--- NOTE | 2016-08-09 09:25 | Dialysis Note ---
Dialysis Note - Dialysis Note Mr. Denney is seen during his hemodialysis. We are ultrafiltering aggressively today trying to remove another 3 kg. His weight at present time is 108 kg so it appears his best weight is going to be about 105 kg and will change that dry weight at the kidney unit. He is anxious to go home and I think he will be able to go home this afternoon following this ultrafiltration session. He will dialyze again tomorrow as an outpatient.
[2016-08-09 12:55] VITALS: BP 131/70
--- NOTE | 2016-08-09 13:51 | Discharge Summary ---
Hospital Course - Hospital Course Hospital Course: Mr. Denney is a 66 year old male with a past medical history significant for hypertension, congestive heart failure, diabetes mellitus, CABG in 2009, and ESRD on hemodialysis who presented to the ED with complaints of progressive shortness of breath x 1 week. The patient has been on hemodialysis for nearly 18 years now and routinely sees Dr. Rian Vela and [facility] [place] for his renal and primary medical management. He reported that he had been feeling progressively short of breath for approximately one week now. He dialyzes on Friday, and Friday. He tells me that on Friday, nearly 4L were pulled off of him in an effort to improve his breathing. Unfortunately, that provided little relief. On exam, the patient is resting comfortably on 2L O2 per NC in bed and able to have normal conversation without becoming short of breath. He only complains of the SOB and some generalized abdominal pain. He denies headache, chest pain, pain on inspiration, syncope, lower extremity edema. Preliminary lab work reveals hemoglobin 12.9 hematocrit 37.0 potassium 3.2 chloride 95 CO2 32 BUN 34 creatinine 11.2 calcium 8.3 troponin 0.096 BNP 1255. The patient will be admitted to the hospital medicine service for further evaluation and treatment. Nephrology was consulted. He underwent HD on the day of admission for fluid removal. He no longer produces any urine. 4kg ov volume were removed. He underwent HD this morning as well with 3kg removed. He is now breathing comfortably and ambulating in the halls. He has reached maximum benefit of inpatient stay and will be discharged home. - Time spent with patient Time with patient DS: Less than 30 minutes Diagnosis - Discharge Diagnosis (1) ESRD on hemodialysis Status: Chronic (2) Diabetes mellitus Status: Chronic (3) Hypertension Status: Chronic (4) SOB (shortness of breath) Status: Resolved Discharge Plan - Discharge Data Disposition: Disch To Home/Self Care Condition at Discharge: Stable Discharge Diet: low salt diet Activity: resume usual activities as tolerated Hygiene: no restrictions Weight Bearing at Discharge: weight bear as tolerated Driving: no restrictions Contact your physician if you experience:: fever over 101, Shortness of breath - Discharge Medications New hydrALAZINE TAB [Apresoline Tab] 25 mg PO TID #90 tablet Continue Simvastatin 40 mg PO BEDTIME Labetalol HCl 300 mg PO BID Aspirin [Ecotrin] 81 mg PO DAILY glipiZIDE XL [Glucotrol Xl] 5 mg PO DAILY W/BREAKFAST Clopidogrel [Plavix] 75 mg PO DAILY Zolpidem [Ambien] 5 mg PO BEDTIME HYDROcodone/ACETAMIN 10-325 [[place] 10-325] 1 tablet PO BID - Follow Up or Referral - Forms/Instructions Exam - Constitutional Vitals: Period Temp Pulse Resp BP Sys/Carreon Pulse Ox Last 24 Hr 97.3 F-98.4 F 60-77 20-24 119-170/65-97 96-99 General appearance: over weight - Head Head exam: Present: normocephalic, atraumatic - Eye Eye exam: Present: EOMI Pupils: Present: FERCHO - ENT ENT exam: Present: normal exam - Neck Neck exam: Present: normal inspection - Respiratory Respiratory exam: Present: clear to auscultation bilaterally. Absent: rhonchi, wheezes - Cardiovascular Cardiovascular exam: Present: regular rate and rhythm - GI/Abdominal GI/Abdominal exam: Present: normal bowel sounds, soft. Absent: tenderness, rebound - Extremities Exam Extremities exam: Present: normal inspection - Back Exam Back exam: Present: normal inspection - Neurological Exam Neurological exam: Present: alert, oriented X3 - Psychiatric Psychiatric exam: Present: normal affect, normal mood - Skin Skin exam: Present: warm, intact Discharge Results Procedures and tests throughout hospitalization: Pending Orders 08/10/16 04:00 BMP w/ Mg [Basic Metabolic Panel w/Mg] IN AM CBC [Comp Blood Count Auto Diff] IN AM 08/11/16 04:00 BMP w/ Mg [Basic Metabolic Panel w/Mg] IN AM CBC [Comp Blood Count Auto Diff] IN AM 08/12/16 04:00 BMP w/ Mg [Basic Metabolic Panel w/Mg] IN AM CBC [Comp Blood Count Auto Diff] IN AM Labs on day of discharge: Labs from last 24 hours 08/09/16 08/09/16 08/09/16 10:40 07:16 03:57 WBC RBC Hgb Hct MCV MCH MCHC RDW Plt Count MPV Neut % (Auto) Lymph % (Auto) [place] % (Auto) Eos % (Auto) Baso % (Auto) Neut # (Auto) Lymph # (Auto) [place] # (Auto) Eos # (Auto) Baso # (Auto) Immature Gran % Nucleated RBC % Immature Gran # Nucleated RBCs # Sodium 138 Potassium 3.3 L Chloride 96 L Carbon Dioxide 31 Anion Gap 14.3 BUN 29 H Creatinine 9.10 H GFR Calculation 8 BUN/Creatinine Ratio 3.00 L Glucose 73 L POC Glucose 112 H 87 Calculated Osmolality 279.7 Calcium 8.0 L Magnesium 2.0 08/09/16 08/08/16 08/08/16 03:57 21:35 17:29 WBC 4.1 RBC 3.84 Hgb 11.2 L Hct 33.4 L MCV 87.0 MCH 29 MCHC 33.5 RDW 14.9 Plt Count 196 MPV 11.1 Neut % (Auto) 52.8 Lymph % (Auto) 29.5 [place] % (Auto) 12.9 H Eos % (Auto) 3.9 Baso % (Auto) 0.7 Neut # (Auto) 2.2 Lymph # (Auto) 1.2 L [place] # (Auto) 0.5 Eos # (Auto) 0.2 Baso # (Auto) 0.0 Immature Gran % 0.2 Nucleated RBC % 0.0 Immature Gran # 0.01 Nucleated RBCs # 0.00 Sodium Potassium Chloride Carbon Dioxide Anion Gap BUN Creatinine GFR Calculation BUN/Creatinine Ratio Glucose POC Glucose 96 83 Calculated Osmolality Calcium Magnesium Preliminary micro results at discharge 08/08/16 06:22 Blood Culture - Preliminary Blood No growth at 1 day 08/08/16 06:22 Blood Culture - Preliminary Blood No growth at 1 day DS: Provider Date of admission: 08/08/16 03:35 Primary care physician: John Siegel MD Attending physician on admission: Jaguar López MD Discharging clinician: Reddy Leger MD
== END 2016-08-09 14:52 | disposition home or self-care (01) | DRG 291 ==
LOC: N.ED 01:24 → N.EDINP 03:35 → SUATTDRO 03:35 → N.2E 04:13
PROVIDERS: ADMIT Family Medicine; ATTEND Internal Medicine

== ENCOUNTER 2018-07-02 10:57 | Inpatient (IN) ==
[2018-07-02] MEDS ORDERED: ONDANSETRON 4 MG/2 ML VIAL ONE (11:43)
[2018-07-02] MEDS ORDERED: ONDANSETRON 4 MG/2 ML VIAL IV STA (11:51)
[2018-07-02 12:00] LABS: Basophils # 0.1 10*3/uL (0.0-0.2); Basophils % 0.4 % (0.0-0.8); Eosinophils # 0.1 10*3/uL (0.0-0.87); Eosinophils % 0.4 % (0.00-10.9); Hemoglobin 14.6 GM/DL (14.0-18.0); Immature Granulocytes % 0.8 %; Immature Granulocytes Absolute 0.14 #; Lymphocytes # 3.1 10*3/uL (1.4-4.0); Lymphocytes % 16.9 % (21.2-54.2); Mean Corpuscular HGB Conc 31.7 GM/DL (32-36); Mean Corpuscular Hemoglobin 28 PG (27-34); Mean Corpuscular Volume 89.1 FL (87-102); Mean Platelet Volume 10.2 FL (9.6-12.0); Monocytes # 1.8 10*3/uL (0.11-0.8); Monocytes % 9.8 % (1.7-12.7); Neutrophils # 13.3 10*3/uL (1.4-7.4); Neutrophils % 71.7 % (38.7-73.9); Platelet Count 252 T/CUMM (130-400); Red Blood Count 5.16 MC/CUMM (3.8-5.5); Red Cell Distribution Width 17.8 % (9.3-17.3); White Blood Count 18.6 T/CUMM (4-12)
[2018-07-02] MEDS ORDERED: ACETAMINOPHEN 500 MG TABLET PO STA (12:04)
[2018-07-02 12:07] LABS: INR 1.1; Partial Thromboplastin Time 29.6 SECS (0-40)
[2018-07-02] MEDS ORDERED: ALBUTEROL 2.5 MG/3 ML NEB RESP TX STA (12:12)
[2018-07-02 12:14] LABS: Albumin 3.7 G/DL (3.4-5.0); Bilirubin,Total 1.5 MG/DL (0.2-1.0); Calcium 8.9 MG/DL (8.5-10.1); Osmolality,Calculated 275.1 MOS/KG (273-304); Potassium 3.7 MMOL/L (3.5-5.1); Total Protein 9.5 G/DL (6.4-8.3)
[2018-07-02] MEDS ORDERED: LEVOFLOXACIN INJ 500 MG in PREMIX 1 EACH IV STA (12:57)
[2018-07-02] MEDS ORDERED: GLUCAGON 1 MG VIAL IM PRN (13:42)
[2018-07-02] MEDS ORDERED: DEXTROSE 50% 25 GM/50 ML VIAL IV PRN (13:42)
[2018-07-02] MEDS ORDERED: ONDANSETRON 4 MG/2 ML VIAL IV PRN (13:42)
[2018-07-02] MEDS ORDERED: MORPHINE 4 MG/1 ML VIAL IV PRN (13:42)
[2018-07-02] MEDS ORDERED: guaiFENesin/DM ER 600-30 MG TABLET PO PRN (13:42)
[2018-07-02] MEDS ORDERED: SODIUM CHLORIDE 0.9% 500 ML IV STA (15:17)
[2018-07-02] MEDS ORDERED: SODIUM CHLORIDE 0.9% 3,300 ML IV ONE (15:37)
[2018-07-02] MEDS: AZITHROMYCIN INJ 500 MG in SODIUM CHLORIDE 0.9% 250 ML IV SCH (16:13)
[2018-07-02] MEDS: INSULIN LISPRO 100 UNIT/ML SUBCUT SCH ×2 (17:05→20:04)
[2018-07-02] MEDS ORDERED: SODIUM CHLORIDE 0.9% 1,000 ML IV SCH (17:30)
[2018-07-02] MEDS: ACETAMINOPHEN 325 MG TABLET PO PRN (18:17)
[2018-07-03 06:43] LABS: Calcium 6.3 MG/DL (8.5-10.1); Osmolality,Calculated 283.5 MOS/KG (273-304); Potassium 2.7 MMOL/L (3.5-5.1); Risk Ratio 4.27; Thyroid Stimulating Hormone 0.779 uIU/ml (0.358-3.74); VLDL CHOLESTEROL 27.6 MG/DL
[2018-07-03 06:47] LABS: Basophils % 0.2 % (0.0-0.8); Eosinophils % 0.3 % (0.00-10.9); Hematocrit 33.7 VOL% (42.0-52.0); Immature Granulocytes % 0.5 %; Immature Granulocytes Absolute 0.07 #; Lymphocytes # 1.5 10*3/uL (1.4-4.0); Mean Corpuscular HGB Conc 32.6 GM/DL (32-36); Mean Corpuscular Hemoglobin 29 PG (27-34); Mean Corpuscular Volume 88.9 FL (87-102); Mean Platelet Volume 10.8 FL (9.6-12.0); Monocytes # 1.3 10*3/uL (0.11-0.8); Monocytes % 9.7 % (1.7-12.7); NRBC # 0.02 10*3/uL; Neutrophils # 10.4 10*3/uL (1.4-7.4); Neutrophils % 78.3 % (38.7-73.9); Platelet Count 202 T/CUMM (130-400); Red Cell Distribution Width 17.2 % (9.3-17.3); White Blood Count 13.3 T/CUMM (4-12)
[2018-07-03 07:06] LABS: Red Blood Count 3.79 MC/CUMM (3.8-5.5)
[2018-07-03] MEDS: INSULIN LISPRO 100 UNIT/ML SUBCUT SCH ×4 (08:01→21:05)
[2018-07-03] MEDS: ASPIRIN EC 81 MG TABLET PO SCH (09:25)
[2018-07-03] MEDS: CLOPIDOGREL 75 MG TABLET PO SCH (09:25)
[2018-07-03] MEDS: POTASSIUM CHLORIDE 20 MEQ TABLET PO SCH ×2 (09:25→13:03)
[2018-07-03] MEDS: ATORVASTATIN 20 MG TABLET PO SCH (09:25)
[2018-07-03] MEDS: PANTOPRAZOLE 40 MG TABLET PO SCH (09:25)
[2018-07-03] MEDS: MAGNESIUM OXIDE 400 MG TABLET PO SCH ×2 (09:26→21:05)
[2018-07-03] MEDS ORDERED: LEVOFLOXACIN INJ 750 MG in PREMIX 1 EACH IV SCH (12:00)
[2018-07-03] MEDS: cefTRIAXone 1,000 MG in SYRINGE 1 EACH IV SCH (15:35)
[2018-07-03] MEDS: AZITHROMYCIN INJ 500 MG in SODIUM CHLORIDE 0.9% 250 ML IV SCH (15:41)
[2018-07-04 04:38] LABS: Basophils % 0.2 % (0.0-0.8); Eosinophils # 0.2 10*3/uL (0.0-0.87); Eosinophils % 2.2 % (0.00-10.9); Hematocrit 35.7 VOL% (42.0-52.0); Hemoglobin 11.2 GM/DL (14.0-18.0); Immature Granulocytes % 0.6 %; Immature Granulocytes Absolute 0.06 #; Lymphocytes # 1.4 10*3/uL (1.4-4.0); Lymphocytes % 14.2 % (21.2-54.2); Mean Corpuscular HGB Conc 31.4 GM/DL (32-36); Mean Corpuscular Hemoglobin 28 PG (27-34); Mean Corpuscular Volume 89.9 FL (87-102); Mean Platelet Volume 10.8 FL (9.6-12.0); Monocytes % 9.9 % (1.7-12.7); Neutrophils # 7.1 10*3/uL (1.4-7.4); Neutrophils % 72.9 % (38.7-73.9); Platelet Count 206 T/CUMM (130-400); Red Blood Count 3.97 MC/CUMM (3.8-5.5); White Blood Count 9.7 T/CUMM (4-12)
[2018-07-04 05:31] LABS: Osmolality,Calculated 283.1 MOS/KG (273-304)
[2018-07-04] MEDS: INSULIN LISPRO 100 UNIT/ML SUBCUT SCH ×4 (07:57→22:03)
[2018-07-04] MEDS: PANTOPRAZOLE 40 MG TABLET PO SCH (11:42)
[2018-07-04] MEDS: ASPIRIN EC 81 MG TABLET PO SCH (11:42)
[2018-07-04] MEDS: CLOPIDOGREL 75 MG TABLET PO SCH (11:42)
[2018-07-04] MEDS: MAGNESIUM OXIDE 400 MG TABLET PO SCH ×2 (11:42→22:02)
[2018-07-04] MEDS: ATORVASTATIN 20 MG TABLET PO SCH (11:43)
[2018-07-04] MEDS: AZITHROMYCIN INJ 500 MG in SODIUM CHLORIDE 0.9% 250 ML IV SCH (16:03)
[2018-07-04] MEDS: cefTRIAXone 1,000 MG in SYRINGE 1 EACH IV SCH (16:03)
[2018-07-04] MEDS: ACETAMINOPHEN 325 MG TABLET PO PRN (17:11)
[2018-07-05 05:07] LABS: Basophils % 0.6 % (0.0-0.8); Eosinophils # 0.2 10*3/uL (0.0-0.87); Hematocrit 37.9 VOL% (42.0-52.0); Immature Granulocytes % 0.4 %; Immature Granulocytes Absolute 0.03 #; Lymphocytes # 1.5 10*3/uL (1.4-4.0); Lymphocytes % 21.7 % (21.2-54.2); Mean Corpuscular HGB Conc 31.7 GM/DL (32-36); Mean Corpuscular Hemoglobin 28 PG (27-34); Mean Corpuscular Volume 88.8 FL (87-102); Mean Platelet Volume 10.3 FL (9.6-12.0); Monocytes # 0.9 10*3/uL (0.11-0.8); Monocytes % 13.6 % (1.7-12.7); Neutrophils # 4.2 10*3/uL (1.4-7.4); Neutrophils % 60.7 % (38.7-73.9); Platelet Count 249 T/CUMM (130-400); Red Blood Count 4.27 MC/CUMM (3.8-5.5); Red Cell Distribution Width 16.7 % (9.3-17.3); White Blood Count 6.9 T/CUMM (4-12)
[2018-07-05 05:38] LABS: Calcium 7.4 MG/DL (8.5-10.1); Osmolality,Calculated 278.1 MOS/KG (273-304); Potassium 3.7 MMOL/L (3.5-5.1)
[2018-07-05] MEDS: INSULIN LISPRO 100 UNIT/ML SUBCUT SCH ×4 (08:38→21:24)
[2018-07-05] MEDS: ASPIRIN EC 81 MG TABLET PO SCH (08:39)
[2018-07-05] MEDS: ATORVASTATIN 20 MG TABLET PO SCH (08:39)
[2018-07-05] MEDS: PANTOPRAZOLE 40 MG TABLET PO SCH (08:39)
[2018-07-05] MEDS: CLOPIDOGREL 75 MG TABLET PO SCH (08:39)
[2018-07-05] MEDS: AZITHROMYCIN INJ 500 MG in SODIUM CHLORIDE 0.9% 250 ML IV SCH (16:36)
[2018-07-05] MEDS: cefTRIAXone 1,000 MG in SYRINGE 1 EACH IV SCH (16:36)
[2018-07-06] MEDS: ATORVASTATIN 20 MG TABLET PO SCH (10:40)
[2018-07-06] MEDS: PANTOPRAZOLE 40 MG TABLET PO SCH (10:40)
[2018-07-06] MEDS: ASPIRIN EC 81 MG TABLET PO SCH (10:40)
[2018-07-06] MEDS: CLOPIDOGREL 75 MG TABLET PO SCH (10:40)
[2018-07-06] MEDS: INSULIN LISPRO 100 UNIT/ML SUBCUT SCH ×4 (12:45→21:02)
[2018-07-06] MEDS ORDERED: ALBUTEROL/IPRATROPIUM 3 ML NEB RESP TX PRN (14:02)
[2018-07-06] MEDS: PIPERACILLIN/TAZOBACTAM 3,375 MG in SODIUM CHLORIDE 0.9% 100 ML IV SCH ×2 (15:08→15:21)
[2018-07-06] MEDS: MONTELUKAST 10 MG TABLET PO SCH ×2 (15:18→21:28)
[2018-07-06] MEDS: ALBUTEROL/IPRATROPIUM 3 ML NEB RESP TX SCH (19:06)
[2018-07-06] MEDS: AZITHROMYCIN INJ 500 MG in SODIUM CHLORIDE 0.9% 250 ML IV SCH (21:05)
[2018-07-06] MEDS: ALBUTEROL 2 MG TABLET PO SCH (21:19)
[2018-07-07] MEDS: ALBUTEROL/IPRATROPIUM 3 ML NEB RESP TX SCH ×4 (00:38→19:52)
[2018-07-07] MEDS: PIPERACILLIN/TAZOBACTAM 3,375 MG in SODIUM CHLORIDE 0.9% 100 ML IV SCH ×3 (03:32→17:47)
[2018-07-07] MEDS: ALBUTEROL 2 MG TABLET PO SCH ×3 (06:47→22:45)
[2018-07-07] MEDS: INSULIN LISPRO 100 UNIT/ML SUBCUT SCH ×4 (07:30→21:27)
[2018-07-07] MEDS: PANTOPRAZOLE 40 MG TABLET PO SCH (08:25)
[2018-07-07] MEDS: ASPIRIN EC 81 MG TABLET PO SCH (08:25)
[2018-07-07] MEDS: MONTELUKAST 10 MG TABLET PO SCH ×2 (08:25→21:27)
[2018-07-07] MEDS: ATORVASTATIN 20 MG TABLET PO SCH (08:25)
[2018-07-07] MEDS: CLOPIDOGREL 75 MG TABLET PO SCH (08:26)
[2018-07-07] MEDS: AZITHROMYCIN INJ 500 MG in SODIUM CHLORIDE 0.9% 250 ML IV SCH (21:31)
[2018-07-08] MEDS: ALBUTEROL/IPRATROPIUM 3 ML NEB RESP TX SCH ×4 (01:02→19:29)
[2018-07-08] MEDS: PIPERACILLIN/TAZOBACTAM 3,375 MG in SODIUM CHLORIDE 0.9% 100 ML IV SCH ×2 (04:43→15:52)
[2018-07-08 05:33] LABS: Basophils # 0.1 10*3/uL (0.0-0.2); Basophils % 0.9 % (0.0-0.8); Eosinophils # 0.3 10*3/uL (0.0-0.87); Eosinophils % 5.2 % (0.00-10.9); Hematocrit 35.7 VOL% (42.0-52.0); Hemoglobin 11.5 GM/DL (14.0-18.0); Immature Granulocytes % 0.2 %; Immature Granulocytes Absolute 0.01 #; Lymphocytes # 1.3 10*3/uL (1.4-4.0); Lymphocytes % 21.7 % (21.2-54.2); Mean Corpuscular HGB Conc 32.2 GM/DL (32-36); Mean Corpuscular Hemoglobin 28 PG (27-34); Mean Corpuscular Volume 87.9 FL (87-102); Mean Platelet Volume 10.2 FL (9.6-12.0); Monocytes # 0.7 10*3/uL (0.11-0.8); Monocytes % 11.6 % (1.7-12.7); Neutrophils # 3.5 10*3/uL (1.4-7.4); Neutrophils % 60.4 % (38.7-73.9); Platelet Count 310 T/CUMM (130-400); Red Blood Count 4.06 MC/CUMM (3.8-5.5); Red Cell Distribution Width 17.3 % (9.3-17.3); White Blood Count 5.8 T/CUMM (4-12)
[2018-07-08 06:02] LABS: Calcium 6.7 MG/DL (8.5-10.1); Osmolality,Calculated 292.4 MOS/KG (273-304); Potassium 3.9 MMOL/L (3.5-5.1)
[2018-07-08] MEDS: ALBUTEROL 2 MG TABLET PO SCH ×3 (06:39→21:13)
[2018-07-08] MEDS: CLOPIDOGREL 75 MG TABLET PO SCH (09:25)
[2018-07-08] MEDS: MONTELUKAST 10 MG TABLET PO SCH ×2 (09:25→21:13)
[2018-07-08] MEDS: ATORVASTATIN 20 MG TABLET PO SCH (09:26)
[2018-07-08] MEDS: PANTOPRAZOLE 40 MG TABLET PO SCH (09:26)
[2018-07-08] MEDS: ASPIRIN EC 81 MG TABLET PO SCH (09:33)
[2018-07-08] MEDS: INSULIN LISPRO 100 UNIT/ML SUBCUT SCH ×4 (10:11→20:20)
[2018-07-08 15:46] LABS: Procalcitonin, S 57 ng/mL (<=0.15)
[2018-07-08] MEDS: AZITHROMYCIN INJ 500 MG in SODIUM CHLORIDE 0.9% 250 ML IV SCH (21:12)
[2018-07-09] MEDS: ALBUTEROL/IPRATROPIUM 3 ML NEB RESP TX SCH ×4 (00:37→19:27)
[2018-07-09] MEDS: PIPERACILLIN/TAZOBACTAM 3,375 MG in SODIUM CHLORIDE 0.9% 100 ML IV SCH ×2 (04:14→15:31)
[2018-07-09] MEDS: ALBUTEROL 2 MG TABLET PO SCH ×3 (05:33→21:27)
[2018-07-09 05:53] LABS: Basophils # 0.1 10*3/uL (0.0-0.2); Basophils % 1.1 % (0.0-0.8); Eosinophils # 0.3 10*3/uL (0.0-0.87); Eosinophils % 4.8 % (0.00-10.9); Hematocrit 36.3 VOL% (42.0-52.0); Hemoglobin 11.7 GM/DL (14.0-18.0); Immature Granulocytes % 0.5 %; Immature Granulocytes Absolute 0.03 #; Lymphocytes # 1.2 10*3/uL (1.4-4.0); Lymphocytes % 17.7 % (21.2-54.2); Mean Corpuscular HGB Conc 32.2 GM/DL (32-36); Mean Corpuscular Hemoglobin 29 PG (27-34); Mean Corpuscular Volume 88.5 FL (87-102); Monocytes # 0.7 10*3/uL (0.11-0.8); Monocytes % 10.8 % (1.7-12.7); Neutrophils # 4.3 10*3/uL (1.4-7.4); Neutrophils % 65.1 % (38.7-73.9); Platelet Count 328 T/CUMM (130-400); Red Cell Distribution Width 17.5 % (9.3-17.3); White Blood Count 6.6 T/CUMM (4-12)
[2018-07-09 06:01] LABS: INR 1.1; PT Patient Result 12.2 SECS; Partial Thromboplastin Time 31.9 SECS (0-40)
[2018-07-09] MEDS ORDERED: diphenhydrAMINE 50 MG/1 ML VIAL IM ONE (08:00)
[2018-07-09] MEDS ORDERED: BENZONATATE 100 MG CAPSULE PO ONE (08:00)
[2018-07-09] MEDS ORDERED: MEPERIDINE 50 MG/1 ML VIAL IM ONE (08:00)
[2018-07-09] MEDS: INSULIN LISPRO 100 UNIT/ML SUBCUT SCH ×4 (08:06→21:28)
[2018-07-09] MEDS ORDERED: LIDOCAINE 2% 20 ML VIAL RESP TX ONE (08:30)
[2018-07-09] MEDS ORDERED: LIDOCAINE 2% VISCOUS 100 ML BOTTLE SWISH/SPIT ONE (08:30)
[2018-07-09] MEDS ORDERED: LIDOCAINE 1% 20 ML VIAL MISC INJ ONE (08:30)
[2018-07-09] MEDS ORDERED: MIDAZOLAM 2 MG/2 ML VIAL ONE (08:47)
[2018-07-09] MEDS: ASPIRIN EC 81 MG TABLET PO SCH (10:02)
[2018-07-09] MEDS: ATORVASTATIN 20 MG TABLET PO SCH (10:02)
[2018-07-09] MEDS: PANTOPRAZOLE 40 MG TABLET PO SCH (10:03)
[2018-07-09] MEDS: CLOPIDOGREL 75 MG TABLET PO SCH (10:03)
[2018-07-09] MEDS: MONTELUKAST 10 MG TABLET PO SCH ×2 (10:04→21:27)
[2018-07-10] MEDS: ALBUTEROL/IPRATROPIUM 3 ML NEB RESP TX SCH ×4 (01:15→20:04)
[2018-07-10] MEDS: PIPERACILLIN/TAZOBACTAM 3,375 MG in SODIUM CHLORIDE 0.9% 100 ML IV SCH (04:02)
[2018-07-10] MEDS: ALBUTEROL 2 MG TABLET PO SCH ×3 (06:22→21:00)
[2018-07-10] MEDS: INSULIN LISPRO 100 UNIT/ML SUBCUT SCH ×4 (08:27→20:50)
[2018-07-10] MEDS: MONTELUKAST 10 MG TABLET PO SCH ×2 (08:28→20:49)
[2018-07-10] MEDS: CLOPIDOGREL 75 MG TABLET PO SCH (08:28)
[2018-07-10] MEDS: ATORVASTATIN 20 MG TABLET PO SCH (08:28)
[2018-07-10] MEDS: ASPIRIN EC 81 MG TABLET PO SCH (08:28)
[2018-07-10] MEDS: PANTOPRAZOLE 40 MG TABLET PO SCH (08:28)
[2018-07-10] MEDS ORDERED: AZITHROMYCIN INJ 1,000 MG in SODIUM CHLORIDE 0.9% 500 ML IV ONE (09:30)
[2018-07-11] MEDS: ALBUTEROL/IPRATROPIUM 3 ML NEB RESP TX SCH ×4 (02:35→19:30)
[2018-07-11] MEDS: ALBUTEROL 2 MG TABLET PO SCH ×3 (05:47→21:41)
[2018-07-11] MEDS: INSULIN LISPRO 100 UNIT/ML SUBCUT SCH ×4 (09:12→21:04)
[2018-07-11] MEDS: MONTELUKAST 10 MG TABLET PO SCH ×2 (12:12→20:48)
[2018-07-11] MEDS: CLOPIDOGREL 75 MG TABLET PO SCH (12:12)
[2018-07-11] MEDS: ATORVASTATIN 20 MG TABLET PO SCH (12:12)
[2018-07-11] MEDS: ASPIRIN EC 81 MG TABLET PO SCH (12:12)
[2018-07-11] MEDS: AZITHROMYCIN 250 MG TABLET PO SCH (12:12)
[2018-07-11] MEDS: PANTOPRAZOLE 40 MG TABLET PO SCH (12:12)
[2018-07-12] MEDS: ALBUTEROL/IPRATROPIUM 3 ML NEB RESP TX SCH ×3 (00:30→12:03)
[2018-07-12] MEDS: ALBUTEROL 2 MG TABLET PO SCH (05:55)
[2018-07-12] MEDS: INSULIN LISPRO 100 UNIT/ML SUBCUT SCH (07:09)
[2018-07-12 08:02] VITALS: BP 140/78
[2018-07-12] MEDS: AZITHROMYCIN 250 MG TABLET PO SCH (08:11)
[2018-07-12] MEDS: CLOPIDOGREL 75 MG TABLET PO SCH (08:12)
[2018-07-12] MEDS: ASPIRIN EC 81 MG TABLET PO SCH (08:12)
[2018-07-12] MEDS: PANTOPRAZOLE 40 MG TABLET PO SCH (08:12)
[2018-07-12] MEDS: MONTELUKAST 10 MG TABLET PO SCH (08:12)
[2018-07-12] MEDS: ATORVASTATIN 20 MG TABLET PO SCH (08:12)
== END 2018-07-12 13:20 | disposition home or self-care (01) | DRG 871 ==
LOC: N.ED 10:57 → SUATTDRO 13:01 → N.EDINP 14:24 → N.5E 17:26
PROVIDERS: ADMIT Internal Medicine Geriatric Medicine; ATTEND Internal Medicine Infectious Disease

== ENCOUNTER 2019-06-28 17:57 | Inpatient (IN) ==
[2019-06-28 19:01] LABS: Basophils % 0.3 % (0.0-0.8); Eosinophils % 0.3 % (0.00-10.9); Hematocrit 37.7 VOL% (42.0-52.0); Hemoglobin 12.4 GM/DL (14.0-18.0); Immature Granulocytes % 0.6 %; Immature Granulocytes Absolute 0.09 #; Lymphocytes # 1.2 10*3/uL (1.4-4.0); Lymphocytes % 8.3 % (21.2-54.2); Mean Corpuscular HGB Conc 32.9 GM/DL (32-36); Mean Platelet Volume 10.3 FL (9.6-12.0); Monocytes % 8.4 % (1.7-12.7); Neutrophils % 82.1 % (38.7-73.9); Platelet Count 284 T/CUMM (130-400); Red Blood Count 4.19 MC/CUMM (3.8-5.5); Red Cell Distribution Width 15.2 % (9.3-17.3); White Blood Count 14.5 T/CUMM (4-12)
[2019-06-28 19:15] LABS: Alanine Aminotransferase < 9 U/L (16-61); Albumin 3.3 G/DL (3.4-5.0); Alkaline Phosphatase 43 U/L (45-117); Aspartate Amino Transferase 8 U/L (0-37); Blood Urea Nitrogen 56 MG/DL (7-18); Calcium 7.8 MG/DL (8.5-10.1); Estimated Glom Filtration Rate 6 ML/MIN; Glucose 131 MG/DL (74-106); Osmolality,Calculated 277.8 MOS/KG (273-304); Total Protein 8.3 G/DL (6.4-8.3)
[2019-06-28] MEDS ORDERED: LEVOFLOXACIN INJ 500 MG in PREMIX 1 EACH IV STA (19:18)
[2019-06-28] MEDS ORDERED: GLUCAGON 1 MG VIAL IM PRN ×2 (19:53)
[2019-06-28] MEDS ORDERED: ZALEPLON 5 MG CAPSULE PO PRN (19:53)
[2019-06-28] MEDS ORDERED: ONDANSETRON 4 MG/2 ML VIAL IV PRN (19:53)
[2019-06-28] MEDS ORDERED: DEXTROSE 10% 250 ML BAG IV PRN (19:53)
[2019-06-28] MEDS ORDERED: DEXTROSE 50% 25 GM/50 ML VIAL IV PRN (19:53)
[2019-06-28] MEDS: INSULIN REGULAR 100 UNIT/ML SUBCUT SCH (22:46)
[2019-06-28] MEDS: ENOXAPARIN 30 MG/0.3 ML SYRINGE SUBCUT SCH (23:14)
[2019-06-28] MEDS: ACETAMINOPHEN 325 MG TABLET PO PRN (23:14)
[2019-06-29 05:59] LABS: Basophils % 0.2 % (0.0-0.8); Eosinophils # 0.1 10*3/uL (0.0-0.87); Eosinophils % 0.5 % (0.00-10.9); Hematocrit 35.7 VOL% (42.0-52.0); Hemoglobin 11.5 GM/DL (14.0-18.0); Immature Granulocytes % 0.8 %; Lymphocytes # 1.4 10*3/uL (1.4-4.0); Lymphocytes % 10.6 % (21.2-54.2); Mean Corpuscular HGB Conc 32.2 GM/DL (32-36); Mean Corpuscular Volume 91.5 FL (87-102); Mean Platelet Volume 9.7 FL (9.6-12.0); Monocytes % 12.4 % (1.7-12.7); Neutrophils % 75.5 % (38.7-73.9); Platelet Count 269 T/CUMM (130-400); Red Cell Distribution Width 15.2 % (9.3-17.3); White Blood Count 13.1 T/CUMM (4-12)
[2019-06-29 06:23] LABS: Alanine Aminotransferase < 6 U/L (16-61); Albumin 2.7 G/DL (3.4-5.0); Alkaline Phosphatase 38 U/L (45-117); Aspartate Amino Transferase 24 U/L (0-37); Blood Urea Nitrogen 65 MG/DL (7-18); Calcium 7.6 MG/DL (8.5-10.1); Estimated Glom Filtration Rate 5 ML/MIN; Glucose 76 MG/DL (74-106); Osmolality,Calculated 279.7 MOS/KG (273-304); Total Protein 7.5 G/DL (6.4-8.3)
[2019-06-29] MEDS: PANTOPRAZOLE 40 MG TABLET PO SCH (09:35)
[2019-06-29] MEDS: ACETAMINOPHEN 325 MG TABLET PO PRN ×2 (09:35→16:52)
[2019-06-29] MEDS: INSULIN REGULAR 100 UNIT/ML SUBCUT SCH ×4 (09:35→21:23)
[2019-06-29] MEDS ORDERED: HEPARIN 10,000 UNIT/10 ML VIAL IV SCH (19:00)
[2019-06-29] MEDS: ENOXAPARIN 30 MG/0.3 ML SYRINGE SUBCUT SCH (20:32)
[2019-06-30] MEDS: ACETAMINOPHEN 325 MG TABLET PO PRN ×4 (00:39→22:25)
[2019-06-30] MEDS: LABETALOL 200 MG TABLET PO SCH ×3 (00:39→21:29)
[2019-06-30] MEDS: PANTOPRAZOLE 40 MG TABLET PO SCH (09:06)
[2019-06-30] MEDS: CLOPIDOGREL 75 MG TABLET PO SCH (09:06)
[2019-06-30] MEDS: ATORVASTATIN 20 MG TABLET PO SCH (09:06)
[2019-06-30] MEDS: ASPIRIN EC 81 MG TABLET PO SCH (09:06)
[2019-06-30] MEDS: INSULIN REGULAR 100 UNIT/ML SUBCUT SCH ×4 (11:42→21:29)
[2019-06-30] MEDS ORDERED: GENTAMICIN INJ 120 MG in PREMIX 1 EACH IV ONE (17:00)
[2019-06-30] MEDS: ENOXAPARIN 30 MG/0.3 ML SYRINGE SUBCUT SCH (21:29)
[2019-06-30] MEDS: LEVOFLOXACIN INJ 500 MG in PREMIX 1 EACH IV SCH (21:29)
[2019-06-30 23:52] LABS: Calcium 7.4 MG/DL (8.5-10.1); Osmolality,Calculated 272.9 MOS/KG (273-304)
[2019-07-01 00:57] LABS: Basophils % 0.4 % (0.0-0.8); Eosinophils # 0.2 10*3/uL (0.0-0.87); Eosinophils % 1.8 % (0.00-10.9); Hematocrit 37.3 VOL% (42.0-52.0); Immature Granulocytes % 0.6 %; Immature Granulocytes Absolute 0.07 #; Lymphocytes # 1.6 10*3/uL (1.4-4.0); Lymphocytes % 14.5 % (21.2-54.2); Mean Corpuscular HGB Conc 32.2 GM/DL (32-36); Mean Corpuscular Volume 90.8 FL (87-102); Monocytes % 13.2 % (1.7-12.7); Neutrophils % 69.5 % (38.7-73.9); Platelet Count 309 T/CUMM (130-400); Red Blood Count 4.11 MC/CUMM (3.8-5.5); Red Cell Distribution Width 15.5 % (9.3-17.3); White Blood Count 10.9 T/CUMM (4-12)
[2019-07-01] MEDS: ACETAMINOPHEN 325 MG TABLET PO PRN (06:00)
[2019-07-01 06:53] LABS: Calcium 7.6 MG/DL (8.5-10.1); Osmolality,Calculated 274.1 MOS/KG (273-304)
[2019-07-01] MEDS ORDERED: GENTAMICIN INJ 100 MG in PREMIX 1 EACH IV PRN (07:36)
[2019-07-01] MEDS: INSULIN REGULAR 100 UNIT/ML SUBCUT SCH ×4 (08:09→20:32)
[2019-07-01] MEDS: CLOPIDOGREL 75 MG TABLET PO SCH (08:42)
[2019-07-01] MEDS: PANTOPRAZOLE 40 MG TABLET PO SCH (08:42)
[2019-07-01] MEDS: ATORVASTATIN 20 MG TABLET PO SCH (08:42)
[2019-07-01] MEDS: LABETALOL 200 MG TABLET PO SCH ×2 (08:42→20:32)
[2019-07-01] MEDS: ASPIRIN EC 81 MG TABLET PO SCH (08:42)
[2019-07-01] MEDS: SKIN HEALING OINT (AQUAPHOR) 50 GM TUBE TOP SCH (12:58)
[2019-07-01] MEDS: ENOXAPARIN 30 MG/0.3 ML SYRINGE SUBCUT SCH (20:32)
[2019-07-01] MEDS ORDERED: GENTAMICIN INJ 100 MG in PREMIX 1 EACH IV ONE (21:00)
[2019-07-02 04:50] LABS: Basophils # 0.1 10*3/uL (0.0-0.2); Basophils % 0.6 % (0.0-0.8); Eosinophils # 0.2 10*3/uL (0.0-0.87); Eosinophils % 1.3 % (0.00-10.9); Hematocrit 35.1 VOL% (42.0-52.0); Hemoglobin 11.7 GM/DL (14.0-18.0); Immature Granulocytes % 0.4 %; Immature Granulocytes Absolute 0.05 #; Lymphocytes # 1.5 10*3/uL (1.4-4.0); Lymphocytes % 12.4 % (21.2-54.2); Mean Corpuscular HGB Conc 33.3 GM/DL (32-36); Mean Corpuscular Volume 88.4 FL (87-102); Mean Platelet Volume 10.3 FL (9.6-12.0); Monocytes % 14.7 % (1.7-12.7); Neutrophils % 70.6 % (38.7-73.9); Platelet Count 276 T/CUMM (130-400); Red Blood Count 3.97 MC/CUMM (3.8-5.5); Red Cell Distribution Width 15.6 % (9.3-17.3); White Blood Count 12.3 T/CUMM (4-12)
[2019-07-02 04:59] LABS: Calcium 7.7 MG/DL (8.5-10.1); Osmolality,Calculated 270.9 MOS/KG (273-304)
[2019-07-02] MEDS: ATORVASTATIN 20 MG TABLET PO SCH (08:34)
[2019-07-02] MEDS: SKIN HEALING OINT (AQUAPHOR) 50 GM TUBE TOP SCH (08:34)
[2019-07-02] MEDS: ASPIRIN EC 81 MG TABLET PO SCH (08:34)
[2019-07-02] MEDS: INSULIN REGULAR 100 UNIT/ML SUBCUT SCH ×4 (08:34→20:51)
[2019-07-02] MEDS: CLOPIDOGREL 75 MG TABLET PO SCH (08:35)
[2019-07-02] MEDS: PANTOPRAZOLE 40 MG TABLET PO SCH (08:35)
[2019-07-02] MEDS: LABETALOL 200 MG TABLET PO SCH ×2 (08:35→20:54)
[2019-07-02] MEDS: LEVOFLOXACIN INJ 500 MG in PREMIX 1 EACH IV SCH (20:53)
[2019-07-02] MEDS: ENOXAPARIN 30 MG/0.3 ML SYRINGE SUBCUT SCH (20:54)
[2019-07-02] MEDS: ACETAMINOPHEN 325 MG TABLET PO PRN (21:47)
[2019-07-03 05:54] LABS: Basophils # 0.1 10*3/uL (0.0-0.2); Basophils % 0.4 % (0.0-0.8); Eosinophils # 0.1 10*3/uL (0.0-0.87); Eosinophils % 0.9 % (0.00-10.9); Hematocrit 35.2 VOL% (42.0-52.0); Hemoglobin 11.7 GM/DL (14.0-18.0); Immature Granulocytes % 0.8 %; Immature Granulocytes Absolute 0.11 #; Lymphocytes # 1.4 10*3/uL (1.4-4.0); Lymphocytes % 9.7 % (21.2-54.2); Mean Corpuscular HGB Conc 33.2 GM/DL (32-36); Mean Corpuscular Volume 88.9 FL (87-102); Mean Platelet Volume 9.9 FL (9.6-12.0); Monocytes % 8.3 % (1.7-12.7); Neutrophils % 79.9 % (38.7-73.9); Platelet Count 330 T/CUMM (130-400); Red Blood Count 3.96 MC/CUMM (3.8-5.5); Red Cell Distribution Width 15.6 % (9.3-17.3); White Blood Count 14.1 T/CUMM (4-12)
[2019-07-03 06:11] LABS: Calcium 7.6 MG/DL (8.5-10.1); Osmolality,Calculated 279.9 MOS/KG (273-304)
[2019-07-03] MEDS: INSULIN REGULAR 100 UNIT/ML SUBCUT SCH ×4 (08:42→22:03)
[2019-07-03] MEDS: ATORVASTATIN 20 MG TABLET PO SCH (09:34)
[2019-07-03] MEDS: SKIN HEALING OINT (AQUAPHOR) 50 GM TUBE TOP SCH (09:34)
[2019-07-03] MEDS: CLOPIDOGREL 75 MG TABLET PO SCH (09:34)
[2019-07-03] MEDS: ASPIRIN EC 81 MG TABLET PO SCH (09:34)
[2019-07-03] MEDS: PANTOPRAZOLE 40 MG TABLET PO SCH (09:34)
[2019-07-03] MEDS: LABETALOL 200 MG TABLET PO SCH ×2 (10:19→21:44)
[2019-07-03] MEDS: GABAPENTIN 100 MG CAPSULE PO SCH (11:41)
[2019-07-03] MEDS: ENOXAPARIN 30 MG/0.3 ML SYRINGE SUBCUT SCH (21:43)
[2019-07-03] MEDS: ACETAMINOPHEN 325 MG TABLET PO PRN (21:44)
[2019-07-04] MEDS: LABETALOL 200 MG TABLET PO SCH ×2 (10:30→20:41)
[2019-07-04] MEDS: INSULIN REGULAR 100 UNIT/ML SUBCUT SCH ×4 (10:31→20:42)
[2019-07-04] MEDS: SKIN HEALING OINT (AQUAPHOR) 50 GM TUBE TOP SCH (10:31)
[2019-07-04] MEDS: GABAPENTIN 100 MG CAPSULE PO SCH (10:31)
[2019-07-04] MEDS: ATORVASTATIN 20 MG TABLET PO SCH (10:31)
[2019-07-04] MEDS: ASPIRIN EC 81 MG TABLET PO SCH (10:31)
[2019-07-04] MEDS: CLOPIDOGREL 75 MG TABLET PO SCH (10:32)
[2019-07-04] MEDS: PANTOPRAZOLE 40 MG TABLET PO SCH (10:32)
[2019-07-04] MEDS: ENOXAPARIN 30 MG/0.3 ML SYRINGE SUBCUT SCH (20:40)
[2019-07-04] MEDS: LEVOFLOXACIN INJ 500 MG in PREMIX 1 EACH IV SCH (20:40)
[2019-07-05 06:33] LABS: Basophils # 0.1 10*3/uL (0.0-0.2); Basophils % 0.4 % (0.0-0.8); Eosinophils # 0.3 10*3/uL (0.0-0.87); Hemoglobin 10.8 GM/DL (14.0-18.0); Immature Granulocytes % 1.1 %; Immature Granulocytes Absolute 0.14 #; Lymphocytes # 1.3 10*3/uL (1.4-4.0); Mean Corpuscular HGB Conc 33.8 GM/DL (32-36); Mean Platelet Volume 10.1 FL (9.6-12.0); Monocytes % 7.3 % (1.7-12.7); Neutrophils % 79.2 % (38.7-73.9); Platelet Count 387 T/CUMM (130-400); Red Blood Count 3.72 MC/CUMM (3.8-5.5); Red Cell Distribution Width 15.9 % (9.3-17.3); White Blood Count 12.7 T/CUMM (4-12)
[2019-07-05 06:43] LABS: Calcium 7.4 MG/DL (8.5-10.1); Osmolality,Calculated 277.9 MOS/KG (273-304)
[2019-07-05] MEDS: INSULIN REGULAR 100 UNIT/ML SUBCUT SCH ×4 (09:23→22:24)
[2019-07-05] MEDS: CLOPIDOGREL 75 MG TABLET PO SCH (09:24)
[2019-07-05] MEDS: PANTOPRAZOLE 40 MG TABLET PO SCH (09:25)
[2019-07-05] MEDS: LABETALOL 200 MG TABLET PO SCH ×2 (09:25→22:23)
[2019-07-05] MEDS: ATORVASTATIN 20 MG TABLET PO SCH (09:25)
[2019-07-05] MEDS: ASPIRIN EC 81 MG TABLET PO SCH (09:25)
[2019-07-05] MEDS: GABAPENTIN 100 MG CAPSULE PO SCH (09:26)
[2019-07-05] MEDS: SKIN HEALING OINT (AQUAPHOR) 50 GM TUBE TOP SCH (09:26)
[2019-07-05] MEDS: ACETAMINOPHEN 325 MG TABLET PO PRN (19:29)
[2019-07-05] MEDS: ENOXAPARIN 30 MG/0.3 ML SYRINGE SUBCUT SCH (22:23)
[2019-07-06 09:18] LABS: Basophils # 0.1 10*3/uL (0.0-0.2); Basophils % 0.5 % (0.0-0.8); Eosinophils # 0.2 10*3/uL (0.0-0.87); Eosinophils % 1.5 % (0.00-10.9); Hematocrit 31.8 VOL% (42.0-52.0); Hemoglobin 10.6 GM/DL (14.0-18.0); Immature Granulocytes % 0.9 %; Immature Granulocytes Absolute 0.14 #; Lymphocytes # 1.3 10*3/uL (1.4-4.0); Lymphocytes % 8.5 % (21.2-54.2); Mean Corpuscular HGB Conc 33.3 GM/DL (32-36); Mean Corpuscular Volume 87.6 FL (87-102); Mean Platelet Volume 9.4 FL (9.6-12.0); Monocytes % 6.2 % (1.7-12.7); Neutrophils % 82.4 % (38.7-73.9); Platelet Count 445 T/CUMM (130-400); Red Blood Count 3.63 MC/CUMM (3.8-5.5); Red Cell Distribution Width 15.8 % (9.3-17.3); White Blood Count 15.1 T/CUMM (4-12)
[2019-07-06] MEDS: INSULIN REGULAR 100 UNIT/ML SUBCUT SCH ×4 (09:26→22:47)
[2019-07-06 09:36] LABS: Calcium 7.2 MG/DL (8.5-10.1); Osmolality,Calculated 287.9 MOS/KG (273-304)
[2019-07-06] MEDS ORDERED: cefTRIAXone 1,000 MG in SYRINGE 1 EACH IV SCH (10:00)
[2019-07-06] MEDS: ASPIRIN EC 81 MG TABLET PO SCH (15:27)
[2019-07-06] MEDS: PANTOPRAZOLE 40 MG TABLET PO SCH (15:27)
[2019-07-06] MEDS: ATORVASTATIN 20 MG TABLET PO SCH (15:27)
[2019-07-06] MEDS: GABAPENTIN 100 MG CAPSULE PO SCH (15:27)
[2019-07-06] MEDS: SKIN HEALING OINT (AQUAPHOR) 50 GM TUBE TOP SCH (15:30)
[2019-07-06] MEDS: CLOPIDOGREL 75 MG TABLET PO SCH (15:44)
[2019-07-06] MEDS: LABETALOL 200 MG TABLET PO SCH ×2 (15:44→22:47)
[2019-07-06] MEDS: LEVOFLOXACIN INJ 500 MG in PREMIX 1 EACH IV SCH (15:59)
[2019-07-06] MEDS: ENOXAPARIN 30 MG/0.3 ML SYRINGE SUBCUT SCH (22:46)
[2019-07-07 08:12] LABS: Basophils % 0.3 % (0.0-0.8); Eosinophils # 0.2 10*3/uL (0.0-0.87); Eosinophils % 1.3 % (0.00-10.9); Hematocrit 29.8 VOL% (42.0-52.0); Immature Granulocytes % 0.7 %; Lymphocytes # 1.4 10*3/uL (1.4-4.0); Lymphocytes % 9.3 % (21.2-54.2); Mean Corpuscular HGB Conc 33.6 GM/DL (32-36); Mean Corpuscular Volume 86.1 FL (87-102); Mean Platelet Volume 9.6 FL (9.6-12.0); Monocytes % 7.7 % (1.7-12.7); Neutrophils % 80.7 % (38.7-73.9); Platelet Count 423 T/CUMM (130-400); Red Blood Count 3.46 MC/CUMM (3.8-5.5); White Blood Count 14.7 T/CUMM (4-12)
[2019-07-07 08:29] LABS: Bilirubin,Total 1.1 MG/DL (0.2-1.0); Calcium 7.3 MG/DL (8.5-10.1); Osmolality,Calculated 278.8 MOS/KG (273-304); Total Protein 7.5 G/DL (6.4-8.3)
[2019-07-07] MEDS: INSULIN REGULAR 100 UNIT/ML SUBCUT SCH ×4 (09:06→20:59)
[2019-07-07] MEDS: LABETALOL 200 MG TABLET PO SCH ×2 (09:08→21:00)
[2019-07-07] MEDS: ATORVASTATIN 20 MG TABLET PO SCH (09:08)
[2019-07-07] MEDS: PANTOPRAZOLE 40 MG TABLET PO SCH (09:09)
[2019-07-07] MEDS: ASPIRIN EC 81 MG TABLET PO SCH (09:09)
[2019-07-07] MEDS: SKIN HEALING OINT (AQUAPHOR) 50 GM TUBE TOP SCH (09:09)
[2019-07-07] MEDS: GABAPENTIN 100 MG CAPSULE PO SCH (09:09)
[2019-07-07] MEDS: ENOXAPARIN 30 MG/0.3 ML SYRINGE SUBCUT SCH (20:59)
[2019-07-08] MEDS: INSULIN REGULAR 100 UNIT/ML SUBCUT SCH ×4 (07:52→21:03)
[2019-07-08 08:09] LABS: Basophils # 0.1 10*3/uL (0.0-0.2); Basophils % 0.5 % (0.0-0.8); Eosinophils # 0.3 10*3/uL (0.0-0.87); Eosinophils % 2.1 % (0.00-10.9); Hematocrit 31.1 VOL% (42.0-52.0); Hemoglobin 10.5 GM/DL (14.0-18.0); Immature Granulocytes % 0.9 %; Immature Granulocytes Absolute 0.14 #; Lymphocytes % 6.6 % (21.2-54.2); Mean Corpuscular HGB Conc 33.8 GM/DL (32-36); Mean Corpuscular Volume 85.4 FL (87-102); Mean Platelet Volume 9.5 FL (9.6-12.0); Monocytes % 9.1 % (1.7-12.7); Neutrophils % 80.8 % (38.7-73.9); Platelet Count 467 T/CUMM (130-400); Red Blood Count 3.64 MC/CUMM (3.8-5.5); Red Cell Distribution Width 16.2 % (9.3-17.3); White Blood Count 14.8 T/CUMM (4-12)
[2019-07-08 08:39] LABS: Bilirubin,Total 1.2 MG/DL (0.2-1.0); Calcium 7.1 MG/DL (8.5-10.1); Osmolality,Calculated 282.1 MOS/KG (273-304); Total Protein 7.9 G/DL (6.4-8.3)
[2019-07-08] MEDS: GABAPENTIN 100 MG CAPSULE PO SCH (09:46)
[2019-07-08] MEDS: LABETALOL 200 MG TABLET PO SCH ×2 (09:46→21:02)
[2019-07-08] MEDS: PANTOPRAZOLE 40 MG TABLET PO SCH (09:47)
[2019-07-08] MEDS: ATORVASTATIN 20 MG TABLET PO SCH (09:47)
[2019-07-08] MEDS: ASPIRIN EC 81 MG TABLET PO SCH (09:47)
[2019-07-08] MEDS: SKIN HEALING OINT (AQUAPHOR) 50 GM TUBE TOP SCH (10:30)
[2019-07-08] MEDS: LEVOFLOXACIN INJ 500 MG in PREMIX 1 EACH IV SCH (10:46)
[2019-07-08] MEDS: ENOXAPARIN 30 MG/0.3 ML SYRINGE SUBCUT SCH (21:03)
[2019-07-08] MEDS: ACETAMINOPHEN 325 MG TABLET PO PRN (23:16)
[2019-07-09 06:04] LABS: Basophils # 0.1 10*3/uL (0.0-0.2); Basophils % 0.4 % (0.0-0.8); Eosinophils # 0.2 10*3/uL (0.0-0.87); Eosinophils % 1.3 % (0.00-10.9); Hematocrit 31.4 VOL% (42.0-52.0); Hemoglobin 10.3 GM/DL (14.0-18.0); Immature Granulocytes % 0.9 %; Immature Granulocytes Absolute 0.13 #; Lymphocytes % 6.7 % (21.2-54.2); Mean Corpuscular HGB Conc 32.8 GM/DL (32-36); Mean Corpuscular Volume 88.2 FL (87-102); Mean Platelet Volume 9.5 FL (9.6-12.0); Neutrophils % 80.7 % (38.7-73.9); Platelet Count 473 T/CUMM (130-400); Red Blood Count 3.56 MC/CUMM (3.8-5.5); Red Cell Distribution Width 16.1 % (9.3-17.3)
[2019-07-09 06:27] LABS: Bilirubin,Total 1.6 MG/DL (0.2-1.0); Calcium 7.5 MG/DL (8.5-10.1); Osmolality,Calculated 275.9 MOS/KG (273-304); Total Protein 7.9 G/DL (6.4-8.3)
[2019-07-09] MEDS ORDERED: HEPARIN/NACL 0.9% 2 UNITS/ML 3,000 ML IV ONE (07:52)
[2019-07-09] MEDS ORDERED: fentaNYL 100 MCG/2 ML VIAL ONE (07:57)
[2019-07-09] MEDS ORDERED: MIDAZOLAM 2 MG/2 ML VIAL ONE (07:57)
[2019-07-09] MEDS ORDERED: DIAZEPAM 5 MG TABLET PO ONE (08:00)
[2019-07-09] MEDS ORDERED: MIDAZOLAM 2 MG/2 ML VIAL IV ONE (08:00)
[2019-07-09] MEDS ORDERED: ceFAZolin 1,000 MG in SYRINGE 1 EACH IV ONE (08:00)
[2019-07-09] MEDS ORDERED: fentaNYL 100 MCG/2 ML VIAL IV ONE (08:00)
[2019-07-09] MEDS: INSULIN REGULAR 100 UNIT/ML SUBCUT SCH ×4 (09:07→21:00)
[2019-07-09] MEDS ORDERED: hydrALAZINE 20 MG/1 ML VIAL ONE (09:23)
[2019-07-09] MEDS ORDERED: AZITHROMYCIN 250 MG TABLET PO SCH (10:00)
[2019-07-09] MEDS ORDERED: hydrALAZINE 20 MG/1 ML VIAL IV ONE (10:05)
[2019-07-09] MEDS: ACETAMINOPHEN 325 MG TABLET PO PRN ×2 (15:59→22:49)
[2019-07-09] MEDS: LABETALOL 200 MG TABLET PO SCH ×2 (18:36→21:13)
[2019-07-09] MEDS: PANTOPRAZOLE 40 MG TABLET PO SCH (18:38)
[2019-07-09] MEDS: ATORVASTATIN 20 MG TABLET PO SCH (18:38)
[2019-07-09] MEDS: ASPIRIN EC 81 MG TABLET PO SCH (18:38)
[2019-07-09] MEDS: GABAPENTIN 100 MG CAPSULE PO SCH (18:38)
[2019-07-09] MEDS: SKIN HEALING OINT (AQUAPHOR) 50 GM TUBE TOP SCH (18:41)
[2019-07-10] MEDS: ACETAMINOPHEN 325 MG TABLET PO PRN ×3 (04:04→23:22)
[2019-07-10 06:14] LABS: Basophils # 0.1 10*3/uL (0.0-0.2); Basophils % 0.5 % (0.0-0.8); Eosinophils # 0.2 10*3/uL (0.0-0.87); Hematocrit 28.6 VOL% (42.0-52.0); Hemoglobin 9.3 GM/DL (14.0-18.0); Immature Granulocytes Absolute 0.15 #; Lymphocytes # 1.5 10*3/uL (1.4-4.0); Lymphocytes % 10.5 % (21.2-54.2); Mean Corpuscular HGB Conc 32.5 GM/DL (32-36); Mean Corpuscular Volume 87.7 FL (87-102); Mean Platelet Volume 9.6 FL (9.6-12.0); Monocytes % 10.3 % (1.7-12.7); Neutrophils % 76.7 % (38.7-73.9); Platelet Count 412 T/CUMM (130-400); Red Blood Count 3.26 MC/CUMM (3.8-5.5); Red Cell Distribution Width 16.1 % (9.3-17.3); White Blood Count 14.3 T/CUMM (4-12)
[2019-07-10 06:39] LABS: Albumin 1.9 G/DL (3.4-5.0); Bilirubin,Total 1.5 MG/DL (0.2-1.0); Calcium 7.5 MG/DL (8.5-10.1); Osmolality,Calculated 276.5 MOS/KG (273-304); Total Protein 7.3 G/DL (6.4-8.3)
[2019-07-10] MEDS: INSULIN REGULAR 100 UNIT/ML SUBCUT SCH ×4 (08:48→20:31)
[2019-07-10] MEDS: GABAPENTIN 100 MG CAPSULE PO SCH ×2 (08:56→20:31)
[2019-07-10] MEDS: ASPIRIN EC 81 MG TABLET PO SCH (08:56)
[2019-07-10] MEDS: LABETALOL 200 MG TABLET PO SCH ×2 (08:56→20:32)
[2019-07-10] MEDS: PANTOPRAZOLE 40 MG TABLET PO SCH (08:56)
[2019-07-10] MEDS: ATORVASTATIN 20 MG TABLET PO SCH (08:56)
[2019-07-10] MEDS ORDERED: MORPHINE 4 MG/1 ML VIAL IV ONE (08:57)
[2019-07-10] MEDS: SKIN HEALING OINT (AQUAPHOR) 50 GM TUBE TOP SCH (09:53)
[2019-07-10] MEDS: MORPHINE 4 MG/1 ML VIAL IV PRN ×3 (14:00→20:33)
[2019-07-10] MEDS: ENOXAPARIN 30 MG/0.3 ML SYRINGE SUBCUT SCH (20:31)
[2019-07-11] MEDS: ACETAMINOPHEN 325 MG TABLET PO PRN (03:20)
[2019-07-11 06:46] LABS: Basophils # 0.1 10*3/uL (0.0-0.2); Basophils % 0.4 % (0.0-0.8); Eosinophils # 0.2 10*3/uL (0.0-0.87); Eosinophils % 1.1 % (0.00-10.9); Hematocrit 22.9 VOL% (42.0-52.0); Immature Granulocytes % 1.2 %; Immature Granulocytes Absolute 0.19 #; Lymphocytes # 1.7 10*3/uL (1.4-4.0); Lymphocytes % 10.3 % (21.2-54.2); Mean Corpuscular HGB Conc 33.6 GM/DL (32-36); Mean Corpuscular Volume 86.4 FL (87-102); Mean Platelet Volume 9.9 FL (9.6-12.0); Platelet Count 440 T/CUMM (130-400); Red Blood Count 2.65 MC/CUMM (3.8-5.5); White Blood Count 16.1 T/CUMM (4-12)
[2019-07-11 06:47] LABS: Hemoglobin 7.7 GM/DL (14.0-18.0)
[2019-07-11 07:41] LABS: Bilirubin,Total 2.1 MG/DL (0.2-1.0); Calcium 7.2 MG/DL (8.5-10.1); Osmolality,Calculated 280.8 MOS/KG (273-304); Total Protein 7.3 G/DL (6.4-8.3)
[2019-07-11] MEDS ORDERED: SODIUM CHLORIDE 0.9% 1,000 ML IV PRN (07:45)
[2019-07-11 07:53] LABS: Albumin 1.3 G/DL (3.4-5.0)
[2019-07-11] MEDS: ASPIRIN EC 81 MG TABLET PO SCH (08:28)
[2019-07-11] MEDS: ATORVASTATIN 20 MG TABLET PO SCH (08:28)
[2019-07-11] MEDS: GABAPENTIN 100 MG CAPSULE PO SCH ×2 (08:28→21:14)
[2019-07-11] MEDS: PANTOPRAZOLE 40 MG TABLET PO SCH (08:28)
[2019-07-11] MEDS: INSULIN REGULAR 100 UNIT/ML SUBCUT SCH ×4 (09:09→21:15)
[2019-07-11] MEDS: MORPHINE 4 MG/1 ML VIAL IV PRN ×2 (09:34→16:41)
[2019-07-11] MEDS ORDERED: ceFAZolin 1,000 MG in SYRINGE 1 EACH IV SCH (10:00)
[2019-07-11] MEDS: LABETALOL 200 MG TABLET PO SCH ×2 (12:29→21:15)
[2019-07-11] MEDS: SKIN HEALING OINT (AQUAPHOR) 50 GM TUBE TOP SCH (13:13)
[2019-07-11] MEDS: ENOXAPARIN 30 MG/0.3 ML SYRINGE SUBCUT SCH (21:15)
[2019-07-11 22:22] LABS: Hematocrit 32.3 VOL% (42.0-52.0)
[2019-07-11 22:24] LABS: Hemoglobin 10.6 GM/DL (14.0-18.0)
[2019-07-12] MEDS: INSULIN REGULAR 100 UNIT/ML SUBCUT SCH ×4 (08:01→21:17)
[2019-07-12] MEDS: SKIN HEALING OINT (AQUAPHOR) 50 GM TUBE TOP SCH (08:06)
[2019-07-12] MEDS: PANTOPRAZOLE 40 MG TABLET PO SCH (08:06)
[2019-07-12] MEDS: GABAPENTIN 100 MG CAPSULE PO SCH ×2 (08:06→21:19)
[2019-07-12] MEDS: LABETALOL 200 MG TABLET PO SCH ×2 (08:06→21:20)
[2019-07-12] MEDS: ATORVASTATIN 20 MG TABLET PO SCH (08:06)
[2019-07-12] MEDS: ASPIRIN EC 81 MG TABLET PO SCH (08:06)
[2019-07-12 09:01] LABS: INR 1.3; PT Patient Result 14.1 SECS (9.8-11.9)
[2019-07-12] MEDS ORDERED: LIDOCAINE 1% 20 ML VIAL ONE (09:51)
[2019-07-12] MEDS ORDERED: BUPIVACAINE MPF 0.25% 30 ML VIAL ONE (09:51)
[2019-07-12] MEDS ORDERED: PHENYLEPHRINE 1 MG/10 ML SYRINGE IV ONE (10:32)
[2019-07-12] MEDS ORDERED: MIDAZOLAM 2 MG/2 ML VIAL ONE (10:32)
[2019-07-12] MEDS ORDERED: fentaNYL 100 MCG/2 ML VIAL ONE (10:32)
[2019-07-12] MEDS: PIPERACILLIN/TAZOBACTAM 2,250 MG in SODIUM CHLORIDE 0.9% 100 ML IV SCH ×2 (14:03→22:40)
[2019-07-12] MEDS ORDERED: VANCOMYCIN INJ 2,250 MG in SODIUM CHLORIDE 0.9% 500 ML IV ONE (17:00)
[2019-07-12] MEDS: ENOXAPARIN 30 MG/0.3 ML SYRINGE SUBCUT SCH (21:19)
[2019-07-12] MEDS: MORPHINE 4 MG/1 ML VIAL IV PRN (22:46)
[2019-07-13] MEDS: PIPERACILLIN/TAZOBACTAM 2,250 MG in SODIUM CHLORIDE 0.9% 100 ML IV SCH ×3 (05:20→20:23)
[2019-07-13] MEDS: INSULIN REGULAR 100 UNIT/ML SUBCUT SCH ×4 (07:54→21:55)
[2019-07-13] MEDS: ACETAMINOPHEN 325 MG TABLET PO PRN (08:50)
[2019-07-13] MEDS: LABETALOL 200 MG TABLET PO SCH ×2 (08:51→20:17)
[2019-07-13] MEDS: ATORVASTATIN 20 MG TABLET PO SCH (08:51)
[2019-07-13] MEDS: CLOPIDOGREL 75 MG TABLET PO SCH (08:52)
[2019-07-13] MEDS: GABAPENTIN 100 MG CAPSULE PO SCH ×2 (08:52→20:17)
[2019-07-13] MEDS: ASPIRIN EC 81 MG TABLET PO SCH (08:52)
[2019-07-13] MEDS: PANTOPRAZOLE 40 MG TABLET PO SCH (08:52)
[2019-07-13] MEDS: SKIN HEALING OINT (AQUAPHOR) 50 GM TUBE TOP SCH (08:53)
[2019-07-13 09:00] LABS: Basophils # 0.1 10*3/uL (0.0-0.2); Basophils % 0.5 % (0.0-0.8); Eosinophils # 0.1 10*3/uL (0.0-0.87); Eosinophils % 1.1 % (0.00-10.9); Hematocrit 27.9 VOL% (42.0-52.0); Hemoglobin 9.1 GM/DL (14.0-18.0); Immature Granulocytes % 0.9 %; Immature Granulocytes Absolute 0.11 #; Lymphocytes # 0.8 10*3/uL (1.4-4.0); Lymphocytes % 6.5 % (21.2-54.2); Mean Corpuscular HGB Conc 32.6 GM/DL (32-36); Mean Corpuscular Volume 87.2 FL (87-102); Monocytes % 10.6 % (1.7-12.7); Neutrophils % 80.4 % (38.7-73.9); Platelet Count 371 T/CUMM (130-400); Red Cell Distribution Width 16.6 % (9.3-17.3); White Blood Count 12.9 T/CUMM (4-12)
[2019-07-13 09:22] LABS: Calcium 7.4 MG/DL (8.5-10.1); Osmolality,Calculated 279.5 MOS/KG (273-304)
[2019-07-13] MEDS: MORPHINE 4 MG/1 ML VIAL IV PRN (11:13)
[2019-07-13] MEDS: SODIUM HYPOCHLORITE 0.25% IRRIG 473 ML BOTTLE TOP SCH (18:12)
[2019-07-13] MEDS: ENOXAPARIN 30 MG/0.3 ML SYRINGE SUBCUT SCH (20:17)
[2019-07-14] MEDS: PIPERACILLIN/TAZOBACTAM 2,250 MG in SODIUM CHLORIDE 0.9% 100 ML IV SCH (04:47)
[2019-07-14 09:23] VITALS: BP 112/56
[2019-07-14] MEDS: GABAPENTIN 100 MG CAPSULE PO SCH (09:31)
[2019-07-14] MEDS: INSULIN REGULAR 100 UNIT/ML SUBCUT SCH ×2 (09:31→14:31)
[2019-07-14] MEDS: ASPIRIN EC 81 MG TABLET PO SCH (09:32)
[2019-07-14] MEDS: ATORVASTATIN 20 MG TABLET PO SCH (09:32)
[2019-07-14] MEDS: LABETALOL 200 MG TABLET PO SCH (09:32)
[2019-07-14] MEDS: CLOPIDOGREL 75 MG TABLET PO SCH (09:32)
[2019-07-14] MEDS: PANTOPRAZOLE 40 MG TABLET PO SCH (09:33)
[2019-07-14] MEDS: SKIN HEALING OINT (AQUAPHOR) 50 GM TUBE TOP SCH (09:33)
[2019-07-14] MEDS: SODIUM HYPOCHLORITE 0.25% IRRIG 473 ML BOTTLE TOP SCH (09:34)
[2019-07-14] MEDS ORDERED: VANCOMYCIN INJ 750 MG in SODIUM CHLORIDE 0.9% 250 ML IV PRN (17:00)
[2019-07-14] MEDS ORDERED: PIPERACILLIN/TAZOBACTAM 3,375 MG in SODIUM CHLORIDE 0.9% 100 ML IV SCH (17:00)
[2019-07-14] MEDS ORDERED: VANCOMYCIN INJ 750 MG in SODIUM CHLORIDE 0.9% 250 ML IV ONE (17:00)
== END 2019-07-14 16:32 | disposition home health service (06) | DRG 166 ==
LOC: N.ED 17:57 → N.EDINP 19:53 → SUATTDRO 19:53 → N.2E 21:08 → N.3E 07-05 14:08
PROVIDERS: ADMIT Family Medicine; ATTEND Internal Medicine

== ENCOUNTER 2019-08-04 11:49 | Inpatient (IN) ==
[2019-08-04 13:05] LABS: Basophils % 0.5 % (0.0-0.8); Eosinophils # 0.4 10*3/uL (0.0-0.87); Eosinophils % 5.5 % (0.00-10.9); Hematocrit 29.1 VOL% (42.0-52.0); Hemoglobin 9.2 GM/DL (14.0-18.0); Immature Granulocytes % 0.6 %; Immature Granulocytes Absolute 0.05 #; Lymphocytes # 1.2 10*3/uL (1.4-4.0); Lymphocytes % 14.5 % (21.2-54.2); Mean Corpuscular HGB Conc 31.6 GM/DL (32-36); Mean Corpuscular Volume 88.2 FL (87-102); Mean Platelet Volume 9.2 FL (9.6-12.0); Monocytes % 9.1 % (1.7-12.7); Neutrophils % 69.8 % (38.7-73.9); Platelet Count 377 T/CUMM (130-400); Red Cell Distribution Width 15.9 % (9.3-17.3)
[2019-08-04] MEDS ORDERED: GLUCAGON 1 MG VIAL IM PRN (13:50)
[2019-08-04] MEDS ORDERED: ONDANSETRON 4 MG/2 ML VIAL IV PRN (13:50)
[2019-08-04] MEDS ORDERED: DEXTROSE 50% 25 GM/50 ML VIAL IV PRN (13:50)
[2019-08-04] MEDS ORDERED: PANTOPRAZOLE 40 MG VIAL IV STA (13:50)
[2019-08-04] MEDS ORDERED: SODIUM CHLORIDE 0.9% 1,000 ML IV PRN (14:01)
[2019-08-04 14:06] LABS: Calcium 7.4 MG/DL (8.5-10.1); Osmolality,Calculated 283.7 MOS/KG (273-304)
[2019-08-04 17:12] LABS: Hematocrit 25.5 VOL% (42.0-52.0)
[2019-08-04 17:15] LABS: INR 1.2; Partial Thromboplastin Time 34.3 SECS (23.9-33.8)
[2019-08-04] MEDS: INSULIN LISPRO 100 UNIT/ML SUBCUT SCH ×2 (18:40→21:55)
[2019-08-04] MEDS: PANTOPRAZOLE 40 MG VIAL IV SCH ×2 (18:41→21:52)
[2019-08-04 22:58] LABS: Hematocrit 25.5 VOL% (42.0-52.0)
[2019-08-05 05:04] LABS: Basophils % 0.4 % (0.0-0.8); Eosinophils # 0.5 10*3/uL (0.0-0.87); Eosinophils % 5.2 % (0.00-10.9); Hematocrit 28.5 VOL% (42.0-52.0); Hemoglobin 9.1 GM/DL (14.0-18.0); Immature Granulocytes % 0.5 %; Immature Granulocytes Absolute 0.05 #; Lymphocytes # 1.2 10*3/uL (1.4-4.0); Lymphocytes % 12.3 % (21.2-54.2); Mean Corpuscular HGB Conc 31.9 GM/DL (32-36); Mean Corpuscular Volume 88.2 FL (87-102); Mean Platelet Volume 9.5 FL (9.6-12.0); Monocytes % 8.1 % (1.7-12.7); Neutrophils % 73.5 % (38.7-73.9); Platelet Count 366 T/CUMM (130-400); Red Blood Count 3.23 MC/CUMM (3.8-5.5)
[2019-08-05 05:18] LABS: Calcium 7.1 MG/DL (8.5-10.1); Osmolality,Calculated 282.7 MOS/KG (273-304)
[2019-08-05] MEDS: PANTOPRAZOLE 40 MG VIAL IV SCH ×2 (09:35→20:14)
[2019-08-05] MEDS: INSULIN LISPRO 100 UNIT/ML SUBCUT SCH ×4 (09:45→20:26)
[2019-08-05] MEDS: SODIUM CHLORIDE 0.9% 1,000 ML IV SCH (10:12)
[2019-08-05] MEDS ORDERED: propofoL 200 MG/20 ML VIAL IV ONE (11:11)
[2019-08-05] MEDS ORDERED: LIDOCAINE 2% 5 ML VIAL ONE (11:11)
[2019-08-05 14:43] LABS: Hematocrit 24.9 VOL% (42.0-52.0); Hemoglobin 7.8 GM/DL (14.0-18.0)
[2019-08-05] MEDS ORDERED: HEPARIN 10,000 UNIT/10 ML VIAL IV SCH (15:15)
[2019-08-06 06:43] LABS: Hematocrit 25.5 VOL% (42.0-52.0); Hemoglobin 8.2 GM/DL (14.0-18.0)
[2019-08-06] MEDS: INSULIN LISPRO 100 UNIT/ML SUBCUT SCH ×4 (08:19→22:25)
[2019-08-06] MEDS: PANTOPRAZOLE 40 MG VIAL IV SCH ×2 (08:37→22:22)
[2019-08-06] MEDS: SODIUM CHLORIDE 0.9% 1,000 ML IV SCH (11:22)
[2019-08-06] MEDS ORDERED: TUBERCULIN SKIN TEST 0.1 ML SYRINGE INTRADERM ONE (12:16)
[2019-08-07 05:21] LABS: Basophils % 0.7 % (0.0-0.8); Eosinophils # 0.4 10*3/uL (0.0-0.87); Eosinophils % 6.7 % (0.00-10.9); Hematocrit 28.2 VOL% (42.0-52.0); Hemoglobin 8.9 GM/DL (14.0-18.0); Immature Granulocytes % 0.6 %; Immature Granulocytes Absolute 0.03 #; Lymphocytes # 0.9 10*3/uL (1.4-4.0); Lymphocytes % 17.6 % (21.2-54.2); Mean Corpuscular HGB Conc 31.6 GM/DL (32-36); Mean Corpuscular Volume 88.7 FL (87-102); Mean Platelet Volume 9.3 FL (9.6-12.0); Monocytes % 13.5 % (1.7-12.7); Neutrophils % 60.9 % (38.7-73.9); Platelet Count 343 T/CUMM (130-400); Red Blood Count 3.18 MC/CUMM (3.8-5.5); Red Cell Distribution Width 15.3 % (9.3-17.3); White Blood Count 5.4 T/CUMM (4-12)
[2019-08-07 06:26] LABS: Calcium 7.5 MG/DL (8.5-10.1); Osmolality,Calculated 273.2 MOS/KG (273-304)
[2019-08-07] MEDS: INSULIN LISPRO 100 UNIT/ML SUBCUT SCH ×4 (09:02→21:41)
[2019-08-07] MEDS: PANTOPRAZOLE 40 MG VIAL IV SCH ×2 (09:07→20:13)
[2019-08-07] MEDS ORDERED: POTASSIUM CHLORIDE 20 MEQ TABLET PO ONE (12:27)
[2019-08-08 05:37] LABS: Basophils % 0.7 % (0.0-0.8); Eosinophils # 0.5 10*3/uL (0.0-0.87); Eosinophils % 8.6 % (0.00-10.9); Hematocrit 26.2 VOL% (42.0-52.0); Hemoglobin 8.4 GM/DL (14.0-18.0); Immature Granulocytes % 0.2 %; Immature Granulocytes Absolute 0.01 #; Lymphocytes # 1.2 10*3/uL (1.4-4.0); Lymphocytes % 20.4 % (21.2-54.2); Mean Corpuscular HGB Conc 32.1 GM/DL (32-36); Mean Corpuscular Volume 87.3 FL (87-102); Mean Platelet Volume 9.4 FL (9.6-12.0); Monocytes % 11.5 % (1.7-12.7); Neutrophils % 58.6 % (38.7-73.9); Platelet Count 327 T/CUMM (130-400); Red Cell Distribution Width 15.3 % (9.3-17.3); White Blood Count 5.9 T/CUMM (4-12)
[2019-08-08 05:57] LABS: Calcium 7.1 MG/DL (8.5-10.1)
[2019-08-08] MEDS: INSULIN LISPRO 100 UNIT/ML SUBCUT SCH ×4 (07:48→21:07)
[2019-08-08] MEDS: PANTOPRAZOLE 40 MG VIAL IV SCH (08:40)
[2019-08-09] MEDS: INSULIN LISPRO 100 UNIT/ML SUBCUT SCH ×4 (08:21→22:54)
[2019-08-09] MEDS ORDERED: ROPIVACAINE 0.5% 30 ML VIAL ONE (08:25)
[2019-08-09] MEDS ORDERED: DEXAMETHASONE 4 MG/1 ML VIAL ONE (08:25)
[2019-08-09] MEDS ORDERED: LIDOCAINE 1% 5 ML VIAL ONE (08:25)
[2019-08-09] MEDS ORDERED: LIDOCAINE 1% 20 ML VIAL ONE (08:39)
[2019-08-09] MEDS ORDERED: SODIUM CHLORIDE 0.9% 250 ML IV SCH (09:00)
[2019-08-09] MEDS ORDERED: LIDOCAINE 2% 5 ML VIAL ONE (09:42)
[2019-08-09] MEDS ORDERED: PHENYLEPHRINE DRIP 20 MG/250 ML PREMIX IV ONE (09:42)
[2019-08-09] MEDS ORDERED: MIDAZOLAM 2 MG/2 ML VIAL ONE (09:42)
[2019-08-09] MEDS ORDERED: propofoL 200 MG/20 ML VIAL IV ONE (09:42)
[2019-08-09] MEDS ORDERED: SEVOFLURANE 1 UNIT/15 MINUTE INH ONE (09:42)
[2019-08-09] MEDS: PANTOPRAZOLE 40 MG TABLET PO SCH (09:56)
[2019-08-09] MEDS: amLODIPine 10 MG TABLET PO SCH (16:16)
[2019-08-10 07:01] LABS: Basophils % 0.5 % (0.0-0.8); Eosinophils # 0.1 10*3/uL (0.0-0.87); Eosinophils % 1.4 % (0.00-10.9); Hematocrit 27.2 VOL% (42.0-52.0); Hemoglobin 8.5 GM/DL (14.0-18.0); Immature Granulocytes % 0.3 %; Immature Granulocytes Absolute 0.02 #; Lymphocytes # 1.3 10*3/uL (1.4-4.0); Lymphocytes % 20.4 % (21.2-54.2); Mean Corpuscular HGB Conc 31.3 GM/DL (32-36); Mean Corpuscular Volume 88.6 FL (87-102); Mean Platelet Volume 9.7 FL (9.6-12.0); Monocytes % 9.1 % (1.7-12.7); Neutrophils % 68.3 % (38.7-73.9); Platelet Count 342 T/CUMM (130-400); Red Blood Count 3.07 MC/CUMM (3.8-5.5); Red Cell Distribution Width 15.6 % (9.3-17.3); White Blood Count 6.5 T/CUMM (4-12)
[2019-08-10 07:22] LABS: Calcium 7.2 MG/DL (8.5-10.1); Osmolality,Calculated 273.4 MOS/KG (273-304)
[2019-08-10] MEDS: amLODIPine 10 MG TABLET PO SCH (09:12)
[2019-08-10] MEDS: PANTOPRAZOLE 40 MG TABLET PO SCH (09:12)
[2019-08-10] MEDS: INSULIN LISPRO 100 UNIT/ML SUBCUT SCH ×4 (09:14→22:32)
[2019-08-11 06:49] LABS: Basophils % 0.6 % (0.0-0.8); Eosinophils # 0.4 10*3/uL (0.0-0.87); Hematocrit 25.5 VOL% (42.0-52.0); Hemoglobin 8.2 GM/DL (14.0-18.0); Immature Granulocytes % 0.3 %; Immature Granulocytes Absolute 0.02 #; Lymphocytes # 1.5 10*3/uL (1.4-4.0); Lymphocytes % 22.2 % (21.2-54.2); Mean Corpuscular HGB Conc 32.2 GM/DL (32-36); Mean Corpuscular Volume 87.9 FL (87-102); Mean Platelet Volume 9.6 FL (9.6-12.0); Monocytes % 7.8 % (1.7-12.7); Neutrophils % 63.1 % (38.7-73.9); Platelet Count 326 T/CUMM (130-400); Red Cell Distribution Width 15.5 % (9.3-17.3); White Blood Count 6.6 T/CUMM (4-12)
[2019-08-11 07:07] LABS: Osmolality,Calculated 277.4 MOS/KG (273-304)
[2019-08-11] MEDS: PANTOPRAZOLE 40 MG TABLET PO SCH (09:13)
[2019-08-11] MEDS: amLODIPine 10 MG TABLET PO SCH (09:13)
[2019-08-11] MEDS: INSULIN LISPRO 100 UNIT/ML SUBCUT SCH ×4 (09:13→21:32)
[2019-08-11] MEDS: ACETAMINOPHEN 325 MG TABLET PO PRN (09:13)
[2019-08-12] MEDS: amLODIPine 10 MG TABLET PO SCH (09:11)
[2019-08-12] MEDS: INSULIN LISPRO 100 UNIT/ML SUBCUT SCH ×4 (09:11→21:13)
[2019-08-12] MEDS: PANTOPRAZOLE 40 MG TABLET PO SCH (09:11)
[2019-08-12] MEDS: ACETAMINOPHEN 325 MG TABLET PO PRN (09:12)
[2019-08-13] MEDS: PANTOPRAZOLE 40 MG TABLET PO SCH (10:43)
[2019-08-13] MEDS: INSULIN LISPRO 100 UNIT/ML SUBCUT SCH ×3 (10:43→16:05)
[2019-08-13 15:56] VITALS: BP 116/63
[2019-08-13] MEDS: amLODIPine 10 MG TABLET PO SCH (16:03)
== END 2019-08-13 16:20 | disposition home health service (06) | DRG 981 ==
LOC: EDBD → EDUNIT# → N.ED 11:49 → N.EDINP 11:49 → N.TELEN 17:32 → SUATTDRO 20:03 → N.3E 08-06 00:12
PROVIDERS: ADMIT Internal Medicine; ATTEND Internal Medicine

== ENCOUNTER 2019-09-10 06:00 | Inpatient (IN) ==
[2019-09-06 11:52] LABS: Basophils % 0.4 % (0.0-0.8); Eosinophils # 0.2 10*3/uL (0.0-0.87); Eosinophils % 3.4 % (0.00-10.9); Hematocrit 32.3 VOL% (42.0-52.0); Hemoglobin 9.8 GM/DL (14.0-18.0); Immature Granulocytes % 0.4 %; Immature Granulocytes Absolute 0.03 #; Lymphocytes # 1.5 10*3/uL (1.4-4.0); Lymphocytes % 22.1 % (21.2-54.2); Mean Corpuscular HGB Conc 30.3 GM/DL (32-36); Mean Corpuscular Volume 89.2 FL (87-102); Mean Platelet Volume 10.1 FL (9.6-12.0); Monocytes % 10.2 % (1.7-12.7); Neutrophils % 63.5 % (38.7-73.9); Platelet Count 339 T/CUMM (130-400); Red Blood Count 3.62 MC/CUMM (3.8-5.5); Red Cell Distribution Width 15.3 % (9.3-17.3); White Blood Count 6.8 T/CUMM (4-12)
[2019-09-06 12:21] LABS: Calcium 8.2 MG/DL (8.5-10.1)
[~2019-09-10 06:00] MED LIST: ACETAMINOPHEN 500 MG TABLET PO ONE; FAMOTIDINE 20 MG TABLET PO ONE; GABAPENTIN 400 MG CAPSULE PO ONE
[2019-09-10] MEDS ORDERED: ceFAZolin 1,000 MG VIAL ONE (06:15)
[2019-09-10] MEDS ORDERED: FAMOTIDINE 20 MG TABLET ONE (06:15)
[2019-09-10] MEDS ORDERED: GABAPENTIN 400 MG CAPSULE ONE (06:15)
[2019-09-10] MEDS ORDERED: ACETAMINOPHEN 500 MG TABLET ONE (06:15)
[2019-09-10] MEDS ORDERED: ceFAZolin 1,000 MG in SYRINGE 1 EACH IV ONE (06:30)
[2019-09-10] MEDS: SODIUM CHLORIDE 0.9% 250 ML IV SCH ×2 (06:45→18:06)
[2019-09-10 06:50] LABS: Hematocrit 32.8 VOL% (42.0-52.0)
[2019-09-10] MEDS ORDERED: BUPIVACAINE MPF 0.25% 30 ML VIAL ONE (06:51)
[2019-09-10] MEDS ORDERED: LIDOCAINE 1% 20 ML VIAL ONE (06:51)
[2019-09-10] MEDS ORDERED: LIDOCAINE 1%/EPI INJ 20 ML VIAL ONE (07:14)
[2019-09-10] MEDS ORDERED: LIDOCAINE 2% 5 ML VIAL ONE (07:58)
[2019-09-10] MEDS ORDERED: propofoL 200 MG/20 ML VIAL IV ONE (07:58)
[2019-09-10] MEDS ORDERED: SEVOFLURANE 1 UNIT/15 MINUTE INH ONE (07:58)
[2019-09-10] MEDS ORDERED: ETOMIDATE 40 MG/20 ML VIAL IV ONE (07:59)
[2019-09-10] MEDS ORDERED: fentaNYL 100 MCG/2 ML VIAL ONE (07:59)
[2019-09-10] MEDS ORDERED: MIDAZOLAM 2 MG/2 ML VIAL ONE (07:59)
[2019-09-10] MEDS ORDERED: PHENYLEPHRINE 1 MG/10 ML SYRINGE IV ONE (07:59)
[2019-09-10] MEDS ORDERED: ePHEDrine 50 MG/ML VIAL ONE (07:59)
[2019-09-10] MEDS ORDERED: GLUCAGON 1 MG VIAL IM PRN ×2 (11:43→13:55)
[2019-09-10] MEDS ORDERED: HYDROmorphone 2 MG/1 ML VIAL IV PRN ×3 (11:43→13:55)
[2019-09-10] MEDS ORDERED: ONDANSETRON 4 MG/2 ML VIAL IV PRN ×2 (11:43→13:55)
[2019-09-10] MEDS ORDERED: KETOROLAC 15 MG/1 ML VIAL IV PRN ×2 (11:43→13:55)
[2019-09-10] MEDS ORDERED: ACETAMINOPHEN 325 MG TABLET PO PRN (11:43)
[2019-09-10] MEDS ORDERED: DEXTROSE 10% 250 ML BAG IV PRN ×2 (11:43→13:55)
[2019-09-10] MEDS ORDERED: ALBUTEROL/IPRATROPIUM 3 ML NEB RESP TX PRN (11:43)
[2019-09-10] MEDS ORDERED: INSULIN LISPRO 100 UNIT/ML SUBCUT SCH (12:00)
[2019-09-10] MEDS ORDERED: ZALEPLON 5 MG CAPSULE PO PRN (13:55)
[2019-09-10] MEDS ORDERED: PROMETHAZINE 25 MG/1 ML VIAL IM PRN (13:55)
[2019-09-10] MEDS: ASPIRIN EC 81 MG TABLET PO SCH (15:55)
[2019-09-10] MEDS: MULTIVITAMIN (BEROCCA) TABLET PO SCH (15:55)
[2019-09-10] MEDS: CLOPIDOGREL 75 MG TABLET PO SCH (15:56)
[2019-09-10] MEDS: ATORVASTATIN 20 MG TABLET PO SCH (15:56)
[2019-09-10] MEDS: amLODIPine 10 MG TABLET PO SCH (15:56)
[2019-09-10] MEDS: INSULIN REGULAR 100 UNIT/ML SUBCUT SCH ×3 (16:13→20:57)
[2019-09-10] MEDS ORDERED: ceFAZolin 2,000 MG in PREMIX 1 EACH IV SCH (17:44)
[2019-09-10] MEDS: rOPINIRole 0.25 MG TABLET PO SCH (21:10)
[2019-09-11 06:09] LABS: Basophils % 0.5 % (0.0-0.8); Eosinophils # 0.3 10*3/uL (0.0-0.87); Eosinophils % 5.5 % (0.00-10.9); Hematocrit 29.8 VOL% (42.0-52.0); Hemoglobin 9.2 GM/DL (14.0-18.0); Immature Granulocytes % 0.2 %; Immature Granulocytes Absolute 0.01 #; Lymphocytes # 1.4 10*3/uL (1.4-4.0); Lymphocytes % 24.8 % (21.2-54.2); Mean Corpuscular HGB Conc 30.9 GM/DL (32-36); Mean Corpuscular Volume 87.6 FL (87-102); Mean Platelet Volume 9.8 FL (9.6-12.0); Monocytes % 10.7 % (1.7-12.7); Neutrophils % 58.3 % (38.7-73.9); Platelet Count 287 T/CUMM (130-400); Red Cell Distribution Width 15.1 % (9.3-17.3); White Blood Count 5.6 T/CUMM (4-12)
[2019-09-11 06:27] LABS: Calcium 7.7 MG/DL (8.5-10.1); Osmolality,Calculated 276.8 MOS/KG (273-304)
[2019-09-11] MEDS: SODIUM CHLORIDE 0.9% 250 ML IV SCH ×2 (08:13→18:31)
[2019-09-11] MEDS: INSULIN REGULAR 100 UNIT/ML SUBCUT SCH ×4 (08:50→21:22)
[2019-09-11] MEDS: CALCIUM CARBONATE CHEW 500 MG TABLET PO SCH (10:29)
[2019-09-11] MEDS: MULTIVITAMIN (BEROCCA) TABLET PO SCH (10:30)
[2019-09-11] MEDS: PANTOPRAZOLE 40 MG TABLET PO SCH (10:30)
[2019-09-11] MEDS: amLODIPine 10 MG TABLET PO SCH (10:30)
[2019-09-11] MEDS: ATORVASTATIN 20 MG TABLET PO SCH (10:30)
[2019-09-11] MEDS: ASPIRIN EC 81 MG TABLET PO SCH (10:30)
[2019-09-11] MEDS: CLOPIDOGREL 75 MG TABLET PO SCH (10:30)
[2019-09-11] MEDS ORDERED: HEPARIN 10,000 UNIT/10 ML VIAL IV SCH (17:15)
[2019-09-11] MEDS: rOPINIRole 0.25 MG TABLET PO SCH (21:22)
[2019-09-12] MEDS: INSULIN REGULAR 100 UNIT/ML SUBCUT SCH ×4 (09:40→21:30)
[2019-09-12] MEDS: ASPIRIN EC 81 MG TABLET PO SCH (10:43)
[2019-09-12] MEDS: MULTIVITAMIN (BEROCCA) TABLET PO SCH (10:43)
[2019-09-12] MEDS: SODIUM CHLORIDE 0.9% 250 ML IV SCH (10:43)
[2019-09-12] MEDS: CALCIUM CARBONATE CHEW 500 MG TABLET PO SCH (10:43)
[2019-09-12] MEDS: PANTOPRAZOLE 40 MG TABLET PO SCH (10:44)
[2019-09-12] MEDS: CLOPIDOGREL 75 MG TABLET PO SCH (10:44)
[2019-09-12] MEDS: amLODIPine 10 MG TABLET PO SCH (10:44)
[2019-09-12] MEDS: ATORVASTATIN 20 MG TABLET PO SCH (10:44)
[2019-09-12] MEDS: BISACODYL 5 MG TABLET PO PRN (10:44)
[2019-09-12] MEDS: rOPINIRole 0.25 MG TABLET PO SCH (21:20)
[2019-09-13] MEDS: SODIUM CHLORIDE 0.9% 250 ML IV SCH ×3 (05:37→22:38)
[2019-09-13] MEDS: INSULIN REGULAR 100 UNIT/ML SUBCUT SCH ×4 (08:30→21:55)
[2019-09-13] MEDS: ASPIRIN EC 81 MG TABLET PO SCH (09:28)
[2019-09-13] MEDS: CALCIUM CARBONATE CHEW 500 MG TABLET PO SCH (09:28)
[2019-09-13] MEDS: CLOPIDOGREL 75 MG TABLET PO SCH (09:28)
[2019-09-13] MEDS: MULTIVITAMIN (BEROCCA) TABLET PO SCH (09:28)
[2019-09-13] MEDS: ATORVASTATIN 20 MG TABLET PO SCH (09:28)
[2019-09-13] MEDS: PANTOPRAZOLE 40 MG TABLET PO SCH (09:28)
[2019-09-13] MEDS: amLODIPine 10 MG TABLET PO SCH (09:28)
[2019-09-13] MEDS: rOPINIRole 0.25 MG TABLET PO SCH (21:55)
[2019-09-14 05:39] LABS: Basophils % 0.6 % (0.0-0.8); Eosinophils # 0.2 10*3/uL (0.0-0.87); Eosinophils % 4.5 % (0.00-10.9); Hematocrit 30.3 VOL% (42.0-52.0); Hemoglobin 9.6 GM/DL (14.0-18.0); Immature Granulocytes % 0.2 %; Immature Granulocytes Absolute 0.01 #; Lymphocytes # 1.3 10*3/uL (1.4-4.0); Lymphocytes % 25.8 % (21.2-54.2); Mean Corpuscular HGB Conc 31.7 GM/DL (32-36); Mean Corpuscular Volume 86.3 FL (87-102); Mean Platelet Volume 9.4 FL (9.6-12.0); Monocytes % 9.8 % (1.7-12.7); Neutrophils % 59.1 % (38.7-73.9); Platelet Count 276 T/CUMM (130-400); Red Blood Count 3.51 MC/CUMM (3.8-5.5); Red Cell Distribution Width 14.7 % (9.3-17.3); White Blood Count 5.1 T/CUMM (4-12)
[2019-09-14 05:55] LABS: Calcium 7.7 MG/DL (8.5-10.1); Osmolality,Calculated 276.4 MOS/KG (273-304)
[2019-09-14] MEDS: INSULIN REGULAR 100 UNIT/ML SUBCUT SCH ×4 (07:46→20:39)
[2019-09-14] MEDS: ASPIRIN EC 81 MG TABLET PO SCH (09:07)
[2019-09-14] MEDS: ATORVASTATIN 20 MG TABLET PO SCH (09:07)
[2019-09-14] MEDS: CLOPIDOGREL 75 MG TABLET PO SCH (09:08)
[2019-09-14] MEDS: MULTIVITAMIN (BEROCCA) TABLET PO SCH (09:08)
[2019-09-14] MEDS: CALCIUM CARBONATE CHEW 500 MG TABLET PO SCH (09:08)
[2019-09-14] MEDS: amLODIPine 10 MG TABLET PO SCH (09:08)
[2019-09-14] MEDS: PANTOPRAZOLE 40 MG TABLET PO SCH (09:09)
[2019-09-14] MEDS: SODIUM CHLORIDE 0.9% 250 ML IV SCH (12:03)
[2019-09-14] MEDS: BISACODYL 5 MG TABLET PO PRN (17:37)
[2019-09-14] MEDS: rOPINIRole 0.25 MG TABLET PO SCH (20:38)
[2019-09-15] MEDS: SODIUM CHLORIDE 0.9% 250 ML IV SCH (04:39)
[2019-09-15 08:27] VITALS: BP 143/76
[2019-09-15] MEDS: CALCIUM CARBONATE CHEW 500 MG TABLET PO SCH (09:54)
[2019-09-15] MEDS: PANTOPRAZOLE 40 MG TABLET PO SCH (09:55)
[2019-09-15] MEDS: amLODIPine 10 MG TABLET PO SCH (09:55)
[2019-09-15] MEDS: ASPIRIN EC 81 MG TABLET PO SCH (09:55)
[2019-09-15] MEDS: CLOPIDOGREL 75 MG TABLET PO SCH (09:55)
[2019-09-15] MEDS: MULTIVITAMIN (BEROCCA) TABLET PO SCH (09:55)
[2019-09-15] MEDS: ATORVASTATIN 20 MG TABLET PO SCH (09:55)
[2019-09-15] MEDS: INSULIN REGULAR 100 UNIT/ML SUBCUT SCH (09:56)
== END 2019-09-15 11:25 | disposition home or self-care (01) | DRG 463 ==
LOC: N.OR 06:00 → N.SDSINP 06:02 → N.3E 14:08
PROVIDERS: ADMIT Surgery; ATTEND Surgery

== ENCOUNTER 2020-03-20 09:16 | Inpatient (IN) ==
[2020-03-20] MEDS ORDERED: cefTRIAXone 1,000 MG in SODIUM CHLORIDE 0.9% 100 ML IV STA (10:31)
[2020-03-20] MEDS ORDERED: cefTRIAXone 1,000 MG VIAL ONE (10:41)
[2020-03-20 10:53] LABS: Basophils # 0.1 10*3/uL (0.0-0.2); Basophils % 0.6 % (0.0-0.8); Eosinophils % 0.2 % (0.00-10.9); Hematocrit 33.8 VOL% (42.0-52.0); Hemoglobin 10.7 GM/DL (14.0-18.0); Immature Granulocytes % 0.5 %; Immature Granulocytes Absolute 0.04 #; Lymphocytes # 0.7 10*3/uL (1.4-4.0); Lymphocytes % 8.6 % (21.2-54.2); Mean Corpuscular HGB Conc 31.7 GM/DL (32-36); Mean Corpuscular Volume 80.5 FL (87-102); Mean Platelet Volume 10.1 FL (9.6-12.0); Monocytes % 8.9 % (1.7-12.7); Neutrophils % 81.2 % (38.7-73.9); Platelet Count 321 T/CUMM (130-400); Red Cell Distribution Width 16.5 % (9.3-17.3); White Blood Count 8.2 T/CUMM (4-12)
[2020-03-20 11:06] LABS: INR 1.2
[2020-03-20 11:27] LABS: Alanine Aminotransferase < 9 U/L (16-61); Albumin 3.6 G/DL (3.4-5.0); Alkaline Phosphatase 54 U/L (45-117); Aspartate Amino Transferase 12 U/L (0-37); Blood Urea Nitrogen 40 MG/DL (7-18); Calcium 8.8 MG/DL (8.5-10.1); Estimated Glom Filtration Rate 8 ML/MIN; Glucose 131 MG/DL (74-106); Osmolality,Calculated 277.4 MOS/KG (273-304); Total Protein 7.9 G/DL (6.4-8.3)
[2020-03-20] MEDS ORDERED: ONDANSETRON 4 MG/2 ML VIAL IV PRN (12:58)
[2020-03-20] MEDS ORDERED: GLUCAGON 1 MG VIAL IM PRN (12:58)
[2020-03-20] MEDS ORDERED: DEXTROSE 50% 25 GM/50 ML VIAL IV PRN (12:58)
[2020-03-20] MEDS ORDERED: AZITHROMYCIN INJ 500 MG in SODIUM CHLORIDE 0.9% 250 ML IV ONE (13:00)
[2020-03-20] MEDS: INSULIN LISPRO 100 UNIT/ML SUBCUT SCH ×2 (16:23→21:57)
[2020-03-20] MEDS: CEFEPIME 1,000 MG in SODIUM CHLORIDE 0.9% 100 ML IV SCH (17:21)
[2020-03-20] MEDS: ENOXAPARIN 40 MG/0.4 ML SYRINGE SUBCUT SCH (17:23)
[2020-03-20] MEDS: ACETAMINOPHEN 325 MG TABLET PO PRN (22:26)
[2020-03-20] MEDS: rOPINIRole 1 MG TABLET PO SCH (23:43)
[2020-03-20] MEDS: ZALEPLON 5 MG CAPSULE PO SCH (23:43)
[2020-03-21] MEDS: AZITHROMYCIN INJ 500 MG in SODIUM CHLORIDE 0.9% 250 ML IV SCH (01:30)
[2020-03-21] MEDS: ENOXAPARIN 40 MG/0.4 ML SYRINGE SUBCUT SCH (06:17)
[2020-03-21] MEDS: INSULIN LISPRO 100 UNIT/ML SUBCUT SCH ×3 (08:28→17:31)
[2020-03-21] MEDS: CLOPIDOGREL 75 MG TABLET PO SCH (09:47)
[2020-03-21] MEDS: ATORVASTATIN 20 MG TABLET PO SCH (09:48)
[2020-03-21] MEDS: ASPIRIN EC 81 MG TABLET PO SCH (09:48)
[2020-03-21] MEDS: ACETAMINOPHEN 325 MG TABLET PO PRN (09:48)
[2020-03-21] MEDS: PANTOPRAZOLE 40 MG TABLET PO SCH (09:48)
[2020-03-21] MEDS: HEPARIN 5,000 UNIT/1 ML VIAL SUBCUT SCH ×3 (10:46→21:43)
[2020-03-21 14:50] LABS: Basophils % 0.5 % (0.0-0.8); Eosinophils # 0.1 10*3/uL (0.0-0.87); Eosinophils % 1.8 % (0.00-10.9); Hematocrit 28.4 VOL% (42.0-52.0); Hemoglobin 8.9 GM/DL (14.0-18.0); Immature Granulocytes % 0.7 %; Immature Granulocytes Absolute 0.04 #; Lymphocytes # 0.9 10*3/uL (1.4-4.0); Lymphocytes % 14.3 % (21.2-54.2); Mean Corpuscular HGB Conc 31.3 GM/DL (32-36); Mean Corpuscular Volume 79.8 FL (87-102); Monocytes % 13.8 % (1.7-12.7); Neutrophils % 68.9 % (38.7-73.9); Platelet Count 247 T/CUMM (130-400); Red Blood Count 3.56 MC/CUMM (3.8-5.5); Red Cell Distribution Width 16.2 % (9.3-17.3); White Blood Count 6.2 T/CUMM (4-12)
[2020-03-21 15:21] LABS: Ferritin 135.5 ng/ml (26-388)
[2020-03-21 15:27] LABS: Albumin 2.8 G/DL (3.4-5.0); Bilirubin,Total 0.4 MG/DL (0.2-1.0); Calcium 7.8 MG/DL (8.5-10.1); Osmolality,Calculated 281.5 MOS/KG (273-304); Risk Ratio 4.96; Thyroid Stimulating Hormone 1.09 uIU/ml (0.358-3.74); Total Protein 7.3 G/DL (6.4-8.3); VLDL CHOLESTEROL 39.8 MG/DL
[2020-03-21] MEDS: CEFEPIME 1,000 MG in SODIUM CHLORIDE 0.9% 100 ML IV SCH (17:58)
[2020-03-21] MEDS: ZALEPLON 5 MG CAPSULE PO SCH (21:42)
[2020-03-21] MEDS: rOPINIRole 1 MG TABLET PO SCH (21:42)
[2020-03-22] MEDS: AZITHROMYCIN INJ 500 MG in SODIUM CHLORIDE 0.9% 250 ML IV SCH (01:18)
[2020-03-22] MEDS: ACETAMINOPHEN 325 MG TABLET PO PRN ×2 (01:18→10:35)
[2020-03-22 05:09] LABS: Basophils % 0.4 % (0.0-0.8); Eosinophils # 0.3 10*3/uL (0.0-0.87); Eosinophils % 4.4 % (0.00-10.9); Hematocrit 30.6 VOL% (42.0-52.0); Hemoglobin 9.5 GM/DL (14.0-18.0); Immature Granulocytes % 0.7 %; Immature Granulocytes Absolute 0.05 #; Lymphocytes # 1.2 10*3/uL (1.4-4.0); Lymphocytes % 17.6 % (21.2-54.2); Mean Corpuscular Volume 81.4 FL (87-102); Mean Platelet Volume 10.6 FL (9.6-12.0); Monocytes % 18.4 % (1.7-12.7); Neutrophils % 58.5 % (38.7-73.9); Platelet Count 251 T/CUMM (130-400); Red Blood Count 3.76 MC/CUMM (3.8-5.5); Red Cell Distribution Width 16.1 % (9.3-17.3); White Blood Count 7.1 T/CUMM (4-12)
[2020-03-22] MEDS: INSULIN LISPRO 100 UNIT/ML SUBCUT SCH ×5 (05:23→22:15)
[2020-03-22 05:25] LABS: Osmolality,Calculated 278.4 MOS/KG (273-304)
[2020-03-22 05:39] LABS: Alanine Aminotransferase 12 U/L (16-61); Alkaline Phosphatase 45 U/L (45-117); Aspartate Amino Transferase 20 U/L (0-37); Bilirubin,Total < 0.39 MG/DL (0.2-1.0); Blood Urea Nitrogen 47 MG/DL (7-18); Calcium 8.1 MG/DL (8.5-10.1); Eosinophils 1 % (0-10); Estimated Glom Filtration Rate 7 ML/MIN; Glucose 115 MG/DL (74-106); Hypochromasia Slight; Lymphocytes 24 % (20-55); Microcytosis Slight; Osmolality,Calculated 276.5 MOS/KG (273-304); Platelet Estimate Normal; Segmented Neutrophils 65 % (50-85); Total Cells Counted 100; Total Protein 7.6 G/DL (6.4-8.3)
[2020-03-22] MEDS: ASCORBIC ACID 500 MG TABLET PO SCH ×2 (09:11→22:15)
[2020-03-22] MEDS: PANTOPRAZOLE 40 MG TABLET PO SCH (09:11)
[2020-03-22] MEDS: CLOPIDOGREL 75 MG TABLET PO SCH (09:11)
[2020-03-22] MEDS: ASPIRIN EC 81 MG TABLET PO SCH (09:11)
[2020-03-22] MEDS: HEPARIN 5,000 UNIT/1 ML VIAL SUBCUT SCH ×3 (09:12→22:15)
[2020-03-22] MEDS: ATORVASTATIN 20 MG TABLET PO SCH (09:12)
[2020-03-22] MEDS: CETIRIZINE 10 MG TABLET PO SCH (10:34)
[2020-03-22] MEDS: ZINC GLUCONATE 50 MG TABLET PO SCH (10:34)
[2020-03-22] MEDS: CEFEPIME 1,000 MG in SODIUM CHLORIDE 0.9% 100 ML IV SCH (17:41)
[2020-03-22] MEDS: rOPINIRole 1 MG TABLET PO SCH (22:15)
[2020-03-22] MEDS: ZALEPLON 5 MG CAPSULE PO SCH (22:15)
[2020-03-23] MEDS: AZITHROMYCIN INJ 500 MG in SODIUM CHLORIDE 0.9% 250 ML IV SCH (01:45)
[2020-03-23 05:15] LABS: Basophils % 0.5 % (0.0-0.8); Eosinophils # 0.4 10*3/uL (0.0-0.87); Eosinophils % 5.2 % (0.00-10.9); Hematocrit 28.9 VOL% (42.0-52.0); Immature Granulocytes % 0.4 %; Immature Granulocytes Absolute 0.03 #; Lymphocytes # 1.4 10*3/uL (1.4-4.0); Lymphocytes % 17.9 % (21.2-54.2); Mean Corpuscular HGB Conc 31.1 GM/DL (32-36); Mean Corpuscular Volume 79.8 FL (87-102); Mean Platelet Volume 10.8 FL (9.6-12.0); Monocytes % 14.7 % (1.7-12.7); Neutrophils % 61.3 % (38.7-73.9); Platelet Count 288 T/CUMM (130-400); Red Blood Count 3.62 MC/CUMM (3.8-5.5)
[2020-03-23 05:44] LABS: Osmolality,Calculated 285.4 MOS/KG (273-304)
[2020-03-23 05:48] LABS: Bilirubin,Total 0.4 MG/DL (0.2-1.0); Calcium 8.1 MG/DL (8.5-10.1); Osmolality,Calculated 285.4 MOS/KG (273-304); Total Protein 7.6 G/DL (6.4-8.3)
[2020-03-23] MEDS: HEPARIN 5,000 UNIT/1 ML VIAL SUBCUT SCH ×3 (08:11→21:58)
[2020-03-23] MEDS: ASPIRIN EC 81 MG TABLET PO SCH (08:11)
[2020-03-23] MEDS: INSULIN LISPRO 100 UNIT/ML SUBCUT SCH ×4 (08:11→21:55)
[2020-03-23] MEDS: CETIRIZINE 10 MG TABLET PO SCH (08:12)
[2020-03-23] MEDS: ATORVASTATIN 20 MG TABLET PO SCH (08:12)
[2020-03-23] MEDS: PANTOPRAZOLE 40 MG TABLET PO SCH (08:12)
[2020-03-23] MEDS: ZINC GLUCONATE 50 MG TABLET PO SCH (08:12)
[2020-03-23] MEDS: ASCORBIC ACID 500 MG TABLET PO SCH ×2 (08:12→21:54)
[2020-03-23] MEDS: CLOPIDOGREL 75 MG TABLET PO SCH (08:12)
[2020-03-23] MEDS ORDERED: GENTAMICIN INJ 100 MG in PREMIX 1 EACH IV PRN (13:40)
[2020-03-23] MEDS: cefTRIAXone 2,000 MG in SYRINGE 1 EACH IV SCH (15:13)
[2020-03-23] MEDS ORDERED: GENTAMICIN INJ 100 MG in PREMIX 1 EACH IV ONE (17:00)
[2020-03-23] MEDS ORDERED: GENTAMICIN INJ 240 MG in SODIUM CHLORIDE 0.9% 100 ML IV ONE (17:00)
[2020-03-23] MEDS: rOPINIRole 1 MG TABLET PO SCH (21:55)
[2020-03-23] MEDS: ZALEPLON 5 MG CAPSULE PO SCH (21:55)
[2020-03-24 06:25] LABS: Basophils # 0.1 10*3/uL (0.0-0.2); Basophils % 0.7 % (0.0-0.8); Calcium 8.2 MG/DL (8.5-10.1); Eosinophils # 0.4 10*3/uL (0.0-0.87); Eosinophils % 5.1 % (0.00-10.9); Hematocrit 28.7 VOL% (42.0-52.0); Hemoglobin 8.9 GM/DL (14.0-18.0); Immature Granulocytes % 0.4 %; Immature Granulocytes Absolute 0.03 #; Lymphocytes # 1.6 10*3/uL (1.4-4.0); Mean Corpuscular Volume 79.5 FL (87-102); Mean Platelet Volume 10.9 FL (9.6-12.0); Monocytes % 15.9 % (1.7-12.7); Neutrophils % 55.9 % (38.7-73.9); Osmolality,Calculated 281.1 MOS/KG (273-304); Platelet Count 272 T/CUMM (130-400); Red Blood Count 3.61 MC/CUMM (3.8-5.5); Red Cell Distribution Width 16.3 % (9.3-17.3); White Blood Count 7.2 T/CUMM (4-12)
[2020-03-24] MEDS: INSULIN LISPRO 100 UNIT/ML SUBCUT SCH ×4 (07:25→20:41)
[2020-03-24 08:54] LABS: Anisocytosis 2+; Band Neutrophils 1 % (0-10); Eosinophils 3 % (0-10); Hypochromasia 2+; Lymphocytes 26 % (20-55); Macrocytosis 1+; Metamyelocytes 1 %; Microcytosis 1+; Platelet Estimate Normal; Segmented Neutrophils 53 % (50-85); Total Cells Counted 100
[2020-03-24] MEDS: CETIRIZINE 10 MG TABLET PO SCH (10:00)
[2020-03-24] MEDS: ZINC GLUCONATE 50 MG TABLET PO SCH (10:00)
[2020-03-24] MEDS: CLOPIDOGREL 75 MG TABLET PO SCH (10:00)
[2020-03-24] MEDS: ASPIRIN EC 81 MG TABLET PO SCH (10:00)
[2020-03-24] MEDS: ASCORBIC ACID 500 MG TABLET PO SCH ×2 (10:00→20:39)
[2020-03-24] MEDS: PANTOPRAZOLE 40 MG TABLET PO SCH (10:00)
[2020-03-24] MEDS: ATORVASTATIN 20 MG TABLET PO SCH (10:00)
[2020-03-24] MEDS: HEPARIN 5,000 UNIT/1 ML VIAL SUBCUT SCH ×3 (10:00→20:40)
[2020-03-24] MEDS: cefTRIAXone 2,000 MG in SYRINGE 1 EACH IV SCH (19:05)
[2020-03-24] MEDS: ZALEPLON 5 MG CAPSULE PO SCH (20:39)
[2020-03-24] MEDS: rOPINIRole 1 MG TABLET PO SCH (20:40)
[2020-03-25] MEDS: PANTOPRAZOLE 40 MG TABLET PO SCH (08:19)
[2020-03-25] MEDS: ASPIRIN EC 81 MG TABLET PO SCH (08:20)
[2020-03-25] MEDS: CETIRIZINE 10 MG TABLET PO SCH (08:20)
[2020-03-25] MEDS: CLOPIDOGREL 75 MG TABLET PO SCH (08:20)
[2020-03-25] MEDS: HEPARIN 5,000 UNIT/1 ML VIAL SUBCUT SCH ×3 (08:20→21:08)
[2020-03-25] MEDS: ZINC GLUCONATE 50 MG TABLET PO SCH (08:20)
[2020-03-25] MEDS: ATORVASTATIN 20 MG TABLET PO SCH (08:20)
[2020-03-25 09:08] LABS: Basophils # 0.1 10*3/uL (0.0-0.2); Basophils % 1.1 % (0.0-0.8); Eosinophils # 0.5 10*3/uL (0.0-0.87); Eosinophils % 7.1 % (0.00-10.9); Hematocrit 30.2 VOL% (42.0-52.0); Hemoglobin 9.4 GM/DL (14.0-18.0); Immature Granulocytes % 0.5 %; Immature Granulocytes Absolute 0.03 #; Lymphocytes # 1.4 10*3/uL (1.4-4.0); Lymphocytes % 21.9 % (21.2-54.2); Mean Corpuscular HGB Conc 31.1 GM/DL (32-36); Mean Corpuscular Volume 79.9 FL (87-102); Mean Platelet Volume 10.3 FL (9.6-12.0); Monocytes % 10.8 % (1.7-12.7); NRBC # 0.02 10*3/uL; Neutrophils % 58.6 % (38.7-73.9); Platelet Count 318 T/CUMM (130-400); Red Blood Count 3.78 MC/CUMM (3.8-5.5); Red Cell Distribution Width 16.4 % (9.3-17.3); White Blood Count 6.5 T/CUMM (4-12)
[2020-03-25 09:24] LABS: Calcium 8.2 MG/DL (8.5-10.1)
[2020-03-25] MEDS: INSULIN LISPRO 100 UNIT/ML SUBCUT SCH ×4 (09:27→21:09)
[2020-03-25] MEDS: ASCORBIC ACID 500 MG TABLET PO SCH ×2 (11:25→21:08)
[2020-03-25 12:30] LABS: Anisocytosis 3+; Burr Cells Few; Hypochromasia 4+; Microcytosis 2+; Ovalocytes Few; Platelet Estimate Normal; Poikilocytosis 2+; Polychromasia Slight; Schistocytes Slight
[2020-03-25] MEDS: cefTRIAXone 2,000 MG in SYRINGE 1 EACH IV SCH (17:47)
[2020-03-25] MEDS: ZALEPLON 5 MG CAPSULE PO SCH (21:08)
[2020-03-25] MEDS: rOPINIRole 1 MG TABLET PO SCH (21:08)
[2020-03-26] MEDS: INSULIN LISPRO 100 UNIT/ML SUBCUT SCH ×4 (07:45→21:24)
[2020-03-26] MEDS: ASCORBIC ACID 500 MG TABLET PO SCH ×2 (08:43→21:23)
[2020-03-26] MEDS: ASPIRIN EC 81 MG TABLET PO SCH (08:43)
[2020-03-26] MEDS: CLOPIDOGREL 75 MG TABLET PO SCH (08:43)
[2020-03-26] MEDS: ZINC GLUCONATE 50 MG TABLET PO SCH (08:43)
[2020-03-26] MEDS: ATORVASTATIN 20 MG TABLET PO SCH (08:43)
[2020-03-26] MEDS: HEPARIN 5,000 UNIT/1 ML VIAL SUBCUT SCH ×3 (08:43→21:23)
[2020-03-26] MEDS: PANTOPRAZOLE 40 MG TABLET PO SCH (08:43)
[2020-03-26] MEDS: CETIRIZINE 10 MG TABLET PO SCH (08:43)
[2020-03-26] MEDS ORDERED: GENTAMICIN INJ 100 MG in PREMIX 1 EACH IV ONE (17:00)
[2020-03-26] MEDS: cefTRIAXone 2,000 MG in SYRINGE 1 EACH IV SCH (18:11)
[2020-03-26] MEDS: ZALEPLON 5 MG CAPSULE PO SCH (21:23)
[2020-03-26] MEDS: rOPINIRole 1 MG TABLET PO SCH (21:23)
[2020-03-27 05:29] LABS: Basophils # 0.1 10*3/uL (0.0-0.2); Basophils % 0.9 % (0.0-0.8); Eosinophils # 0.5 10*3/uL (0.0-0.87); Eosinophils % 7.3 % (0.00-10.9); Hematocrit 30.3 VOL% (42.0-52.0); Hemoglobin 9.4 GM/DL (14.0-18.0); Immature Granulocytes % 0.6 %; Immature Granulocytes Absolute 0.04 #; Lymphocytes # 1.8 10*3/uL (1.4-4.0); Lymphocytes % 28.3 % (21.2-54.2); Mean Corpuscular Volume 79.9 FL (87-102); Mean Platelet Volume 10.1 FL (9.6-12.0); Monocytes % 10.1 % (1.7-12.7); NRBC # 0.02 10*3/uL; Neutrophils % 52.8 % (38.7-73.9); Platelet Count 415 T/CUMM (130-400); Red Blood Count 3.79 MC/CUMM (3.8-5.5); Red Cell Distribution Width 16.4 % (9.3-17.3); White Blood Count 6.4 T/CUMM (4-12)
[2020-03-27 05:46] LABS: Calcium 8.1 MG/DL (8.5-10.1)
[2020-03-27] MEDS: INSULIN LISPRO 100 UNIT/ML SUBCUT SCH ×2 (08:05→11:18)
[2020-03-27] MEDS: HEPARIN 5,000 UNIT/1 ML VIAL SUBCUT SCH (08:55)
[2020-03-27] MEDS: ZINC GLUCONATE 50 MG TABLET PO SCH (08:56)
[2020-03-27] MEDS: ASCORBIC ACID 500 MG TABLET PO SCH (08:56)
[2020-03-27] MEDS: ATORVASTATIN 20 MG TABLET PO SCH (08:56)
[2020-03-27] MEDS: PANTOPRAZOLE 40 MG TABLET PO SCH (08:57)
[2020-03-27] MEDS: ASPIRIN EC 81 MG TABLET PO SCH (08:57)
[2020-03-27] MEDS: CLOPIDOGREL 75 MG TABLET PO SCH (08:57)
[2020-03-27] MEDS: CETIRIZINE 10 MG TABLET PO SCH (08:57)
[2020-03-27 11:54] VITALS: BP 117/56
== END 2020-03-27 16:00 | disposition home or self-care (01) | DRG 193 ==
LOC: N.ED 09:16 → N.EDINP 11:49 → SUATTDRO 11:49 → N.EDINP 22:29 → N.2E 22:57 → N.5E 03-24 14:51
PROVIDERS: ADMIT Internal Medicine; ATTEND Internal Medicine

== ENCOUNTER 2020-10-16 20:58 | Observation (INO) ==
[2020-10-16] MEDS ORDERED: ASPIRIN 325 MG TABLET PO STA (21:36)
[2020-10-16] MEDS ORDERED: MORPHINE 2 MG/1 ML SYRINGE IV STA (21:36)
[2020-10-16] MEDS ORDERED: ONDANSETRON 4 MG/2 ML VIAL IV STA (21:36)
[2020-10-16 22:07] LABS: Basophils # 0.1 10*3/uL (0.0-0.2); Basophils % 0.6 % (0.0-0.8); Eosinophils # 0.4 10*3/uL (0.0-0.87); Eosinophils % 4.1 % (0.00-10.9); Hematocrit 33.3 VOL% (42.0-52.0); Immature Granulocytes % 0.4 %; Immature Granulocytes Absolute 0.04 #; Lymphocytes # 1.3 10*3/uL (1.4-4.0); Lymphocytes % 13.4 % (21.2-54.2); Mean Corpuscular Volume 85.6 FL (87-102); Mean Platelet Volume 11.2 FL (9.6-12.0); Monocytes % 7.2 % (1.7-12.7); Neutrophils % 74.3 % (38.7-73.9); Platelet Count 315 T/CUMM (130-400); Red Blood Count 3.89 MC/CUMM (3.8-5.5); Red Cell Distribution Width 16.9 % (9.3-17.3); White Blood Count 9.5 T/CUMM (4-12)
[2020-10-16 22:13] LABS: INR 1.2; PT Patient Result 12.7 SECS (10.5-12.0)
[2020-10-16 22:31] LABS: Albumin 3.4 G/DL (3.4-5.0); Bilirubin,Total 1.1 MG/DL (0.20-1.00); Calcium 7.8 MG/DL (8.5-10.1); Osmolality,Calculated 291.7 MOS/KG (273-304); Potassium 4.2 MMOL/L (3.5-5.1); Total Protein 7.5 G/DL (6.4-8.2)
[2020-10-17] MEDS ORDERED: DEXTROSE 50% 25 GM/50 ML VIAL IV PRN
[2020-10-17] MEDS ORDERED: DOCUSATE SODIUM 100 MG CAPSULE PO PRN
[2020-10-17] MEDS ORDERED: MORPHINE 2 MG/1 ML SYRINGE IV PRN
[2020-10-17] MEDS ORDERED: GLUCAGON 1 MG VIAL IM PRN
[2020-10-17] MEDS ORDERED: ACETAMINOPHEN 325 MG TABLET PO PRN
[2020-10-17] MEDS ORDERED: hydrALAZINE 20 MG/1 ML VIAL IV PRN (00:51)
[2020-10-17 05:27] LABS: Calcium 7.6 MG/DL (8.5-10.1); Osmolality,Calculated 290.8 MOS/KG (273-304); Potassium 4.6 MMOL/L (3.5-5.1)
[2020-10-17] MEDS: HEPARIN 5,000 UNIT/1 ML VIAL SUBCUT SCH ×3 (06:35→21:20)
[2020-10-17] MEDS: INSULIN LISPRO 100 UNIT/ML SUBCUT SCH ×4 (07:35→21:19)
[2020-10-17] MEDS: PANTOPRAZOLE 40 MG TABLET PO SCH (09:01)
[2020-10-18 05:29] LABS: Basophils % 0.7 % (0.0-0.8); Eosinophils # 0.3 10*3/uL (0.0-0.87); Hematocrit 32.8 VOL% (42.0-52.0); Hemoglobin 9.6 GM/DL (14.0-18.0); Immature Granulocytes % 0.3 %; Immature Granulocytes Absolute 0.02 #; Lymphocytes # 1.2 10*3/uL (1.4-4.0); Lymphocytes % 20.2 % (21.2-54.2); Mean Corpuscular HGB Conc 29.3 GM/DL (32-36); Mean Corpuscular Volume 86.8 FL (87-102); Mean Platelet Volume 11.5 FL (9.6-12.0); Monocytes % 12.3 % (1.7-12.7); Neutrophils % 61.5 % (38.7-73.9); Platelet Count 310 T/CUMM (130-400); Red Blood Count 3.78 MC/CUMM (3.8-5.5); Red Cell Distribution Width 17.1 % (9.3-17.3)
[2020-10-18 05:50] LABS: Calcium 8.2 MG/DL (8.5-10.1); Osmolality,Calculated 279.2 MOS/KG (273-304); Potassium 4.4 MMOL/L (3.5-5.1)
[2020-10-18] MEDS: HEPARIN 5,000 UNIT/1 ML VIAL SUBCUT SCH (05:52)
[2020-10-18] MEDS: INSULIN LISPRO 100 UNIT/ML SUBCUT SCH ×2 (08:34→12:42)
[2020-10-18] MEDS: PANTOPRAZOLE 40 MG TABLET PO SCH (08:38)
[2020-10-18] MEDS ORDERED: APIXABAN 5 MG TABLET PO SCH (09:00)
[2020-10-18] MEDS ORDERED: ASPIRIN EC 81 MG TABLET PO SCH (09:00)
[2020-10-18] MEDS ORDERED: CLOPIDOGREL 75 MG TABLET PO SCH (09:00)
[2020-10-18] MEDS ORDERED: amLODIPine 10 MG TABLET PO SCH (09:00)
[2020-10-18] MEDS ORDERED: ATORVASTATIN 20 MG TABLET PO SCH (09:00)
[2020-10-18 11:55] VITALS: BP 81/46
== END 2020-10-18 16:00 | disposition home or self-care (01) ==
LOC: EDUNIT# → EDBD → N.EDINP 20:58 → N.ED 20:58 → N.EDINP 10-17 11:42 → N.TELES 10-17 12:04
PROVIDERS: ADMIT Internal Medicine; ATTEND Internal Medicine

== ENCOUNTER 2021-07-07 20:00 | Inpatient (IN) ==
[2021-07-07] MEDS ORDERED: fentaNYL 100 MCG/2 ML VIAL IV STA (20:38)
[2021-07-07] MEDS ORDERED: SODIUM CHLORIDE 0.9% 500 ML IV STA (20:38)
[2021-07-07] MEDS ORDERED: ACETAMINOPHEN 500 MG TABLET PO STA (20:42)
[2021-07-07 20:43] LABS: Basophils # 0.1 10*3/uL (0.0-0.2); Basophils % 0.3 % (0.0-0.8); Eosinophils % 0.2 % (0.00-10.9); Hematocrit 39.6 VOL% (42.0-52.0); Hemoglobin 12.2 GM/DL (14.0-18.0); Immature Granulocytes % 1.3 %; Immature Granulocytes Absolute 0.23 #; Lymphocytes # 0.9 10*3/uL (1.4-4.0); Lymphocytes % 5.2 % (21.2-54.2); Mean Corpuscular HGB Conc 30.8 GM/DL (32-36); Mean Corpuscular Volume 83.9 FL (87-102); Mean Platelet Volume 9.9 FL (9.6-12.0); Monocytes # 1.6 10*3/uL (0.11-0.8); Monocytes % 8.8 % (1.7-12.7); NRBC # 0.03 10*3/uL; Neutrophils % 84.2 % (38.7-73.9); Platelet Count 329 T/CUMM (130-400); Red Blood Count 4.72 MC/CUMM (3.8-5.5); Red Cell Distribution Width 19.3 % (9.3-17.3); White Blood Count 17.8 T/CUMM (4-12)
[2021-07-07 20:53] LABS: Alanine Aminotransferase 13 U/L (16-61); Albumin 2.8 G/DL (3.4-5.0); Alkaline Phosphatase 88 U/L (45-117); Aspartate Amino Transferase 14 U/L (0-37); Blood Urea Nitrogen 30 MG/DL (7-18); Calcium 8.7 MG/DL (8.5-10.1); Carbon Dioxide 29 MMOL/L (21-32); Chloride 97 MMOL/L (98-107); Estimated Glom Filtration Rate 8 ML/MIN; Glucose 135 MG/DL (74-106); Osmolality,Calculated 273.4 MOS/KG (273-304); Potassium 3.3 MMOL/L (3.5-5.1); Sodium 133 MMOL/L (136-145); Total Protein 8.2 G/DL (6.4-8.2)
[2021-07-07] MEDS ORDERED: SODIUM CHLORIDE 0.9% 1,000 ML IV STA (20:56)
[2021-07-07] MEDS ORDERED: PIPERACILLIN/TAZOBACTAM 3,375 MG in SODIUM CHLORIDE 0.9% 100 ML IV STA (20:56)
[2021-07-07] MEDS ORDERED: ACETAMINOPHEN 325 MG TABLET PO PRN (22:00)
[2021-07-07] MEDS ORDERED: GLUCAGON 1 MG VIAL IM PRN (22:00)
[2021-07-07] MEDS ORDERED: DEXTROSE 10% 250 ML BAG IV PRN (22:00)
[2021-07-07] MEDS ORDERED: ONDANSETRON 4 MG/2 ML VIAL IV PRN (22:00)
[2021-07-07] MEDS ORDERED: hydrALAZINE 20 MG/1 ML VIAL IV PRN (22:00)
[2021-07-07] MEDS: cefTRIAXone 1,000 MG in SODIUM CHLORIDE 0.9% 100 ML IV SCH (22:22)
[2021-07-08] MEDS: metroNIDAZOLE INJ 500 MG/100 ML PREMIX IV SCH ×3 (00:23→15:39)
[2021-07-08] MEDS ORDERED: ENOXAPARIN 100 MG/ML SYRINGE SUBCUT STA (00:31)
[2021-07-08] MEDS ORDERED: SODIUM CHLORIDE 0.9% 1,000 ML IV STA (00:31)
[2021-07-08] MEDS ORDERED: VANCOMYCIN INJ 1,000 MG in SODIUM CHLORIDE 0.9% 250 ML IV PRN (00:44)
[2021-07-08] MEDS ORDERED: VANCOMYCIN INJ 2,000 MG in SODIUM CHLORIDE 0.9% 500 ML IV ONE (02:00)
[2021-07-08] MEDS: HYDROmorphone 1 MG/1 ML SYRINGE IV PRN ×6 (03:46→23:20)
[2021-07-08 04:52] LABS: Basophils # 0.1 10*3/uL (0.0-0.2); Basophils % 0.4 % (0.0-0.8); Eosinophils # 0.1 10*3/uL (0.0-0.87); Eosinophils % 0.7 % (0.00-10.9); Hematocrit 34.9 VOL% (42.0-52.0); Immature Granulocytes % 1.2 %; Immature Granulocytes Absolute 0.18 #; Lymphocytes # 0.9 10*3/uL (1.4-4.0); Lymphocytes % 5.8 % (21.2-54.2); Mean Corpuscular HGB Conc 30.1 GM/DL (32-36); Mean Corpuscular Volume 85.3 FL (87-102); Mean Platelet Volume 10.4 FL (9.6-12.0); Monocytes # 1.2 10*3/uL (0.11-0.8); Monocytes % 7.7 % (1.7-12.7); Neutrophils % 84.2 % (38.7-73.9); Platelet Count 300 T/CUMM (130-400); Red Blood Count 4.09 MC/CUMM (3.8-5.5); Red Cell Distribution Width 19.1 % (9.3-17.3)
[2021-07-08 04:53] LABS: Hemoglobin 10.5 GM/DL (14.0-18.0); White Blood Count 14.9 T/CUMM (4-12)
[2021-07-08 05:17] LABS: Band Neutrophils 6 % (0-10); Eosinophils 1 % (0-10); Hypochromia 1+; Lymphocytes 3 % (20-55); Total Cells Counted 100
[2021-07-08 05:18] LABS: Acanthocytes Few; Elliptocytes Few; Microcytosis 1+; Polychromasia Slight
[2021-07-08 05:22] LABS: Calcium 7.1 MG/DL (8.5-10.1); Osmolality,Calculated 278.8 MOS/KG (273-304); Potassium 3.4 MMOL/L (3.5-5.1)
[2021-07-08] MEDS: INSULIN LISPRO 100 UNIT/ML SUBCUT SCH ×4 (07:53→20:12)
[2021-07-08] MEDS ORDERED: DEXTROSE 50% 25 GM/50 ML VIAL IV PRN (08:32)
[2021-07-08] MEDS ORDERED: GLUCAGON 1 MG VIAL IM PRN (08:32)
[2021-07-08] MEDS: PANTOPRAZOLE 40 MG TABLET PO SCH (09:03)
[2021-07-08 14:26] VITALS: BP 114/68
[2021-07-08] MEDS: cefTRIAXone 1,000 MG in SODIUM CHLORIDE 0.9% 100 ML IV SCH (22:02)
[2021-07-09] MEDS: metroNIDAZOLE INJ 500 MG/100 ML PREMIX IV SCH ×3 (00:17→16:47)
[2021-07-09] MEDS ORDERED: SODIUM CHLORIDE 0.9% 250 ML IV ONE (01:13)
[2021-07-09 04:30] LABS: Basophils % 0.2 % (0.0-0.8); Eosinophils # 0.1 10*3/uL (0.0-0.87); Eosinophils % 0.4 % (0.00-10.9); Hematocrit 33.7 VOL% (42.0-52.0); Hemoglobin 10.5 GM/DL (14.0-18.0); Immature Granulocytes % 2.3 %; Immature Granulocytes Absolute 0.39 #; Lymphocytes # 0.9 10*3/uL (1.4-4.0); Mean Corpuscular HGB Conc 31.2 GM/DL (32-36); Mean Platelet Volume 10.7 FL (9.6-12.0); Monocytes # 1.1 10*3/uL (0.11-0.8); Monocytes % 6.5 % (1.7-12.7); Neutrophils % 85.6 % (38.7-73.9); Platelet Count 306 T/CUMM (130-400); Red Blood Count 4.06 MC/CUMM (3.8-5.5); Red Cell Distribution Width 19.1 % (9.3-17.3); White Blood Count 16.9 T/CUMM (4-12)
[2021-07-09 04:44] LABS: Calcium 7.2 MG/DL (8.5-10.1); Osmolality,Calculated 287.8 MOS/KG (273-304); Potassium 3.9 MMOL/L (3.5-5.1)
[2021-07-09 04:55] LABS: Band Neutrophils 1 % (0-10); Eosinophils 2 % (0-10); Hypochromia Slight; Lymphocytes 2 % (20-55); Microcytosis Slight; Platelet Estimate Adequate; Total Cells Counted 100
[2021-07-09 04:56] LABS: Burr Cells Slight; Ovalocytes Slight
[2021-07-09] MEDS ORDERED: KETOROLAC 30 MG/1 ML VIAL IV ONE (07:57)
[2021-07-09] MEDS ORDERED: PANTOPRAZOLE 40 MG VIAL IV SCH (09:00)
[2021-07-09] MEDS ORDERED: MORPHINE 2 MG/1 ML SYRINGE IV ONE (10:04)
[2021-07-09] MEDS ORDERED: MORPHINE 2 MG/1 ML SYRINGE ONE (10:05)
[2021-07-09 10:14] LABS: Arterial Base Excess iSTAT -6 MMOL/L (-2.5-2.5); Arterial Bicarbonate iSTAT 18.2 MMOL/L (20-26); Arterial O2 Saturation iSTAT 97 % (95-100); Arterial PCO2 iSTAT 33 MM HG (35-48); Arterial PO2 iSTAT 95 MM HG (80-95); Arterial Total CO2 iSTAT 19 MMO/L (23-27); Arterial pH iSTAT 7.354 (7.35-7.45)
[2021-07-09] MEDS ORDERED: HYDROmorphone 1 MG/1 ML SYRINGE IV PRN (10:22)
[2021-07-09] MEDS ORDERED: KETOROLAC 15 MG/1 ML VIAL IV PRN (10:23)
[2021-07-09 10:38] LABS: Albumin 2.2 G/DL (3.4-5.0); Bilirubin,Direct 0.69 MG/DL (0.0-0.20); Bilirubin,Indirect 0.4 MG/DL (0.0-1.0); Bilirubin,Total 1.1 MG/DL (0.20-1.00); Total Protein 7.1 G/DL (6.4-8.2)
[2021-07-09] MEDS: NOREPINEPHRINE 8 MG in SODIUM CHLORIDE 0.9% 242 ML IV PRN ×2 (10:41→13:11)
[2021-07-09] MEDS ORDERED: NOREPINEPHRINE 4 MG/4 ML VIAL IV ONE (10:45)
[2021-07-09] MEDS ORDERED: LACTATED RINGERS 500 ML IV ONE (10:46)
[2021-07-09] MEDS: INSULIN LISPRO 100 UNIT/ML SUBCUT SCH ×3 (11:12→16:29)
[2021-07-09] MEDS ORDERED: EPINEPHrine 1 MG/10 ML SYRINGE IV ONE ×2 (11:24→12:30)
[2021-07-09] MEDS ORDERED: SODIUM BICARBONATE 50 MEQ/50 ML SYRINGE IV ONE ×4 (11:27→13:00)
[2021-07-09] MEDS ORDERED: MAGNESIUM SULFATE 1 GM/2 ML VIAL IV ONE (11:28)
[2021-07-09] MEDS ORDERED: MIDAZOLAM 100 MG in SODIUM CHLORIDE 0.9% 80 ML IV PRN (11:39)
[2021-07-09 11:47] LABS: Basophils # 0.1 10*3/uL (0.0-0.2); Basophils % 0.3 % (0.0-0.8); Eosinophils # 0.1 10*3/uL (0.0-0.87); Eosinophils % 0.2 % (0.00-10.9); Hematocrit 38.3 VOL% (42.0-52.0); Hemoglobin 11.3 GM/DL (14.0-18.0); Immature Granulocytes % 2.3 %; Immature Granulocytes Absolute 0.59 #; Lymphocytes # 3.7 10*3/uL (1.4-4.0); Lymphocytes % 14.4 % (21.2-54.2); Mean Corpuscular HGB Conc 29.5 GM/DL (32-36); Mean Corpuscular Volume 86.8 FL (87-102); Mean Platelet Volume 10.6 FL (9.6-12.0); Monocytes # 1.7 10*3/uL (0.11-0.8); Monocytes % 6.5 % (1.7-12.7); NRBC # 0.05 10*3/uL; Neutrophils % 76.3 % (38.7-73.9); Platelet Count 333 T/CUMM (130-400); Red Blood Count 4.41 MC/CUMM (3.8-5.5); Red Cell Distribution Width 19.7 % (9.3-17.3); White Blood Count 25.9 T/CUMM (4-12)
[2021-07-09 12:02] LABS: Lymphocytes 14 % (20-55); Total Cells Counted 100
[2021-07-09 12:04] LABS: Acanthocytes Few; Elliptocytes Few; Hypochromia Slight; Ovalocytes Few; Platelet Estimate Normal; Tear Drop Cells Few
[2021-07-09] MEDS ORDERED: VASOPRESSIN 100 UNITS in SODIUM CHLORIDE 0.9% 95 ML IV PRN (12:22)
[2021-07-09] MEDS ORDERED: SODIUM CHLORIDE 0.9% 500 ML IV ONE (12:30)
[2021-07-09] MEDS ORDERED: CALCIUM CHLORIDE 1,000 MG/10 ML SYRINGE IV ONE (12:30)
[2021-07-09 12:37] LABS: Albumin 2.2 G/DL (3.4-5.0); Bilirubin,Total 1.3 MG/DL (0.20-1.00); Calcium 7.2 MG/DL (8.5-10.1); Osmolality,Calculated 284.1 MOS/KG (273-304); Potassium 4.4 MMOL/L (3.5-5.1); Total Protein 7.2 G/DL (6.4-8.2)
[2021-07-09 12:38] LABS: ABG HCO3 11.8 MMOL/L (20-26); ABG Oxygen Saturation 99.1 % (95-100); ABG PCO2 36.3 MM HG (35-48); ABG TCO2 11.1 MMOL/L (23-27); Glucose Heart Surgery 83 MG/DL (74-106); Hematocrit Heart Surgery 33.6 PERCENT (42-52); Hemoglobin Heart Surgery 10.9 G/DL (14.0-18.0); Potassium Heart/CVR 4.6 MMOL/L (3.5-5.1)
[2021-07-09] MEDS ORDERED: NOREPINEPHRINE 16 MG in SODIUM CHLORIDE 0.9% 234 ML IV PRN (13:14)
[2021-07-09] MEDS: PANTOPRAZOLE 40 MG TABLET PO SCH (13:16)
[2021-07-09] MEDS ORDERED: ALBUMIN 25% 12.5 GM/50 ML VIAL IV ONE (14:26)
[2021-07-09] MEDS ORDERED: DEXTROSE 50% 25 GM/50 ML SYRINGE IV ONE ×2 (16:25→19:47)
[2021-07-09] MEDS ORDERED: DEXTROSE 50% 25 GM/50 ML SYRINGE IV PRN (16:30)
[2021-07-09 18:05] LABS: ABG Base Excess -10.2 MMOL/L (-2.5-2.5); ABG HCO3 16.4 MMOL/L (20-26); ABG Oxygen Saturation 99.8 % (95-100); ABG PCO2 25.7 MM HG (35-48); ABG TCO2 12.9 MMOL/L (23-27)
[2021-07-09] MEDS ORDERED: HYDROCORTISONE 100 MG VIAL IV SCH (18:30)
[2021-07-09] MEDS ORDERED: HEPARIN 10,000 UNIT/10 ML VIAL IV PRN (18:46)
[2021-07-09] MEDS ORDERED: SODIUM BICARBONATE 50 MEQ/50 ML VIAL IV ONE ×2 (19:47→19:54)
[2021-07-09] MEDS ORDERED: SODIUM BICARB INJ 100 MEQ in DEXTROSE 5% 1,000 ML IV SCH (21:00)
== END 2021-07-09 20:13 | disposition expired | DRG 444 ==
LOC: EDBD → EDUNIT# → N.ED 20:00 → SUATTDRO 22:00 → N.EDINP 22:00 → N.ICU 07-08 14:34
PROVIDERS: ADMIT Internal Medicine; ATTEND Family Medicine